=== PATIENT | female | born 1955 | race Caucasian/White ===

== ENCOUNTER → 2017-11-04 | Outpatient (CLI) | payer OTHER ==
--- NOTE | 2017-11-04 10:43 | RAD ---
Indication: Preop for left knee replacement. Huynh & Nephew protocol was performed. AP views of the left femur as well as the tibia and fibula were obtained. Alignment appears normal. There may be a very small osteochondral defect involving the talar dome medially. There is medial compartmental degenerative change of the left knee. Left hip is unremarkable. No fractures are seen. Impression: No acute feature detected.
--- NOTE | 2017-11-04 13:35 | RAD ---
Examination: MRI of the left knee without contrast using Huynh & Nephew protocol HISTORY: History of chronic left knee pain COMPARISON: None available TECHNIQUE: Axial T2 fat sat and sagittal images of the left knee were performed. FINDINGS: Prior ACL reconstruction changes are identified. The posterior cruciate ligament appears intact. Attenuated appearance of the body of the medial and lateral meniscus likely degeneration. There is increased signal identified in the posterior horn of the medial meniscus probably degeneration. Extensor mechanism is intact. Severe joint space loss identified in the medial, lateral and patellofemoral compartments. The medial, lateral retinaculum appear intact. Small knee joint effusion with small popliteal cyst identified. IMPRESSION: 1. Severe tricompartmental degenerative changes. 2. Small knee joint effusion with small popliteal cyst. 3. Attenuated appearance of the body of the medial and lateral meniscus with increased signal identified in the posterior horn of the medial meniscus probably due to degeneration. 4. Prior ACL reconstruction changes intact. Electronically signed by: Jayden Ospina MD (11/04/2017 1:31 PM) [id number]
== END | disposition home or self-care (01) ==
LOC: RAD 10:00
PROVIDERS: ATTEND Orthopaedic Surgery Sports Medicine
DX: M17.12 Unilateral primary osteoarthritis, left knee (principal); M71.22 Synovial cyst of popliteal space [Baker], left knee; M25.462 Effusion, left knee; Z96.652 Presence of left artificial knee joint
CPT/HCPCS: 73721; 77073

== ENCOUNTER → 2017-11-18 | Outpatient (CLI) | payer OTHER ==
[2017-11-18 09:19] LABS: BILIRUBIN,URINE NEGATIVE (NEG); CLARITY,URINE CLEAR; COLOR,URINE YELLOW; GLUCOSE,URINE 100 mg/dL (NEG); NITRITE,URINE NEGATIVE (NEG); PH,URINE 6.5; PROTEIN,URINE NEGATIVE (NEG-TRACE)
[2017-11-18 09:21] LABS: BASO % 0 % (0-3); EOS # 0.2 x10^3/uL (0.0-0.7); EOS % 3 % (0-3); HEMOGLOBIN 11.6 g/dL (12.0-15.5); LYMPH # 1.9 x10^3/uL (1.0-4.8); LYMPH % 36 % (24-48); MEAN CORPUSCULAR HEMOGLOBIN 32 pg (25-35); MEAN CORPUSCULAR HGB CONC 33 g/dL (31-37); MEAN CORPUSCULAR VOLUME 97 fL (79-100); MONO # 0.4 x10^3/uL (0.0-1.1); MONO % 8 % (0-9); NEUT # 2.7 x10^3uL (1.8-7.7); NEUT % 53 % (31-73); PLATELET COUNT 362 x10^3/uL (140-400); RED CELL DISTRIBUTION WIDTH 13.5 % (11.5-14.5); WHITE BLOOD COUNT 5.2 x10^3/uL (4.0-11.0)
[2017-11-18 09:26] LABS: ADD MAN DIFF? YES
[2017-11-18 09:27] LABS: ALBUMIN 3.4 g/dL (3.4-5.0); ANION GAP 10 (6-14); BLOOD UREA NITROGEN 14 mg/dL (7-20); CALCIUM 8.7 mg/dL (8.5-10.1); CARBON DIOXIDE 30 mmol/L (21-32); CHLORIDE 106 mmol/L (98-107); CREATININE 0.6 mg/dL (0.6-1.0); GFR 101.6; GLUCOSE 92 mg/dL (70-99); POTASSIUM 3.7 mmol/L (3.5-5.1); SODIUM 146 mmol/L (136-145)
[2017-11-18 09:42] LABS: SQUAMOUS EPITHELIAL CELL,UR FEW /LPF
[2017-11-18 09:43] LABS: BACTERIA,URINE FEW /HPF (0-FEW)
[2017-11-18 09:57] LABS: INR 1.1 (0.8-1.1); PARTIAL THROMBOPLASTIN TIME 26 SEC (24-38); PROTHROMBIN TIME PATIENT 13.2 SEC (11.7-14.0)
[2017-11-18 10:20] LABS: % BANDS 1 % (0-9); % BASOS 1 % (0-3); % EOS 2 % (0-5); % LYMPHS 29 % (24-48); % METAS 1 % (0-0); % MONOS 8 % (0-10); % SEGS 58 % (35-66)
[2017-11-18 10:21] LABS: PLT ESTIMATE ADEQUATE (ADEQUATE)
[2017-11-18 10:59] LABS: SEDIMENTATION RATE 18 (0-25)
[2017-11-18 17:11] LABS: HEMOGLOBIN A1C 5.9 % (4.8-5.6)
[2017-11-19 01:10] LABS: MRSA BY PCR Negative (Negative)
== END | disposition home or self-care (01) ==
LOC: SURGPAT 12:20
DX: Z01.818 Encounter for other preprocedural examination (principal); I10 Essential (primary) hypertension; M17.12 Unilateral primary osteoarthritis, left knee; E11.9 Type 2 diabetes mellitus without complications; E03.9 Hypothyroidism, unspecified; E78.5 Hyperlipidemia, unspecified; R79.89 Other specified abnormal findings of blood chemistry; Z96.652 Presence of left artificial knee joint
CPT/HCPCS: 36415; 71046; 80048; 81001; 82040; 83036; 85007; 85025; 85610; 85651; 85730; 87641

== ENCOUNTER 2017-12-08 05:45 | Inpatient (IN) | payer OTHER ==
[2017-12-08] MEDS ORDERED: TRANEXAMIC ACID 1,000 MG in IV NS 50ML -- 1ST BAG INJ (06:00)
[2017-12-08] MEDS ORDERED: CELECOXIB 200 MG CAPSULE. PO (06:00)
[2017-12-08 06:54] LABS: POC GLUCOSE 98 mg/dL (70-99)
[2017-12-08] MEDS: ACETAMINOPHEN 500 MG TABLET PO (06:58)
[2017-12-08] MEDS: IV RINGERS,LACTATED 1000ML 1,000 ML IV ×2 (06:58→10:28)
[2017-12-08] MEDS ORDERED: ONDANSETRON PF 4 MG/2 ML VIAL. IV ×2 (07:00→10:30)
[2017-12-08] MEDS ORDERED: MIDAZOLAM HCL/PF 2 MG/2 ML VIAL. (07:03)
[2017-12-08] MEDS ORDERED: PROPOFOL 20 ML IV (07:03)
[2017-12-08] MEDS ORDERED: FAMOTIDINE 20 MG/2 ML VIAL (07:03)
[2017-12-08] MEDS ORDERED: fentaNYL PF VIAL 100 MCG/2 ML VIAL ×2 (07:03→07:55)
[2017-12-08] MEDS ORDERED: ROCURONIUM 50 MG/5 ML VIAL. (07:03)
[2017-12-08] MEDS ORDERED: ONDANSETRON PF 4 MG/2 ML VIAL. (07:03)
[2017-12-08] MEDS ORDERED: DEXAMETHASONE SOD PHOS 20 MG/5 ML VIAL. (07:03)
[2017-12-08 07:22] LABS: INR 1.1 (0.8-1.1); PARTIAL THROMBOPLASTIN TIME 27 SEC (24-38); PROTHROMBIN TIME PATIENT 13.8 SEC (11.7-14.0)
[2017-12-08] MEDS ORDERED: KETOROLAC IV (08:00)
[2017-12-08] MEDS ORDERED: EPINEPHRINE IV (08:00)
[2017-12-08] MEDS ORDERED: [UNRECOGNIZED DRUG - OTHER] IV (08:00)
[2017-12-08] MEDS ORDERED: hydrALAZINE 20 MG/ML VIAL. (08:00)
[2017-12-08] MEDS ORDERED: ROPIVACAINE IV (08:00)
[2017-12-08] MEDS: TRANEXAMIC ACID 1,000 MG in IV NS 50ML -- 2ND BAG INJ (09:01)
[2017-12-08] MEDS ORDERED: NEOSTIGMINE METHYLSULFATE 5 MG/5 ML SYRINGE. (09:01)
[2017-12-08] MEDS ORDERED: GLYCOPYRROLATE 1 MG/5 ML VIAL. (09:02)
[2017-12-08] MEDS ORDERED: oxyCODONE/APAP 5/325 1 TAB TABLET PO (09:30)
[2017-12-08] MEDS ORDERED: fentaNYL PF VIAL 100 MCG/2 ML VIAL IV ×3 (09:30→10:30)
[2017-12-08] MEDS ORDERED: ACETAMINOPHEN 325 MG TABLET. PO (09:30)
[2017-12-08] MEDS ORDERED: HYDROcodone/APAP 7.5/325MG 1 TAB TABLET PO (09:30)
[2017-12-08] MEDS ORDERED: MORPHINE SULFATE 10 MG/ML VIAL. IV (09:30)
[2017-12-08] MEDS ORDERED: diphenhydrAMINE HCL 25 MG CAPSULE PO (09:30)
[2017-12-08] MEDS ORDERED: METOCLOPRAMIDE HCL 10 MG/2 ML VIAL. IV (09:30)
[2017-12-08] MEDS ORDERED: CALCIUM CARBONATE 500 MG TAB.CHEW PO (09:30)
[2017-12-08] MEDS ORDERED: traMADol 50 MG TABLET PO ×2 (09:30)
[2017-12-08] MEDS ORDERED: MORPHINE SULFATE 2 MG/ML DISP.SYRIN. IV ×2 (09:30→10:30)
[2017-12-08] MEDS ORDERED: 0.9 % SODIUM CHLORIDE 10 ML DISP.SYRIN. IV (09:30)
[2017-12-08] MEDS ORDERED: DEXTROSE 50% 25 GM / 50ML DISP.SYRIN. IV (09:30)
[2017-12-08] MEDS ORDERED: HYDROcodone/APAP 10/325 1 TAB TABLET PO (09:30)
[2017-12-08] MEDS ORDERED: PROCHLORPERAZINE 5 MG TABLET. PO (09:30)
[2017-12-08] MEDS ORDERED: PROCHLORPERAZINE 10 MG/2 ML VIAL. IV ×2 (09:30→10:30)
[2017-12-08] MEDS ORDERED: MORPHINE SULFATE 4 MG/ML DISP.SYRIN. IV (09:30)
[2017-12-08] MEDS ORDERED: oxyCODONE/APAP 7.5/325 1 TAB TABLET PO (09:30)
[2017-12-08] MEDS ORDERED: ZOLPIDEM 5 MG TABLET. PO (09:30)
[2017-12-08] MEDS ORDERED: SEVOFLURANE > 120 MINUTES. IH (09:32)
[2017-12-08] MEDS ORDERED: MORPHINE SULFATE 4 MG/ML DISP.SYRIN. (09:57)
[2017-12-08] MEDS: MORPHINE SULFATE 4 MG/ML DISP.SYRIN. IV (10:00)
[2017-12-08] MEDS: PROCHLORPERAZINE 10 MG/2 ML VIAL. IV ×2 (10:00→10:34)
[2017-12-08] MEDS ORDERED: HYDROmorphone 2 MG/ML VIAL IV (10:30)
[2017-12-08] MEDS ORDERED: LIDOCAINE 1% PF 2 ML VIAL. ID (10:30)
[2017-12-08] MEDS: fentaNYL PF VIAL 100 MCG/2 ML VIAL IV ×2 (10:34→10:41)
[2017-12-08] MEDS: traMADol 50 MG TABLET PO ×2 (12:27→16:16)
[2017-12-08] MEDS: NYSTATIN 100,000 UNIT/GM TOPICAL CREAM 15GM TUBE. TP (13:54)
[2017-12-08] MEDS: FERROUS SULFATE 325 MG TABLET. PO (16:16)
[2017-12-08] MEDS: WARFARIN 7.5 MG TABLET. PO (16:17)
[2017-12-08] MEDS ORDERED: NYSTATIN 100,000 UNIT/GM TOPICAL CREAM 15GM TUBE. TP (17:00)
[2017-12-08] MEDS: IV DEXTROSE 5 %-0.45 % NACL 1,000 ML IV (18:29)
[2017-12-08] MEDS: MORPHINE ER 15 MG TABLET.ER PO (20:26)
[2017-12-08] MEDS: MONTELUKAST SODIUM 10 MG TABLET. PO (20:26)
[2017-12-08] MEDS: AMITRIPTYLINE HCL 50 MG TABLET PO (20:26)
[2017-12-08] MEDS: CELECOXIB 200 MG CAPSULE. PO (20:26)
[2017-12-08] MEDS: GABAPENTIN 300 MG CAPSULE. PO (20:26)
[2017-12-08] MEDS: MECLIZINE HCL 12.5 MG TABLET. PO (20:26)
[2017-12-09] MEDS ORDERED: MAGNESIUM HYDROXIDE 2,400 MG/30 ML ORAL.SUSP. PO (06:00)
[2017-12-09] MEDS: CELECOXIB 200 MG CAPSULE. PO ×2 (08:11→21:00)
[2017-12-09] MEDS: VITAMIN B COMPLEX TABLET. PO (08:11)
[2017-12-09] MEDS: CHOLECALCIFEROL (VITAMIN D3) 1,000 UNIT TABLET PO (08:11)
[2017-12-09] MEDS: FENOFIBRATE,MICRONIZED 134 MG CAPSULE PO (08:11)
[2017-12-09] MEDS: FERROUS SULFATE 325 MG TABLET. PO ×2 (08:11→16:44)
[2017-12-09] MEDS: FOLIC ACID 1 MG TABLET. PO (08:12)
[2017-12-09] MEDS: MULTIVITAMIN with MINERAL TABLET. PO (08:13)
[2017-12-09] MEDS: NIACIN ER 500 MG TABLET.ER PO (08:13)
[2017-12-09] MEDS: DULoxetine HCL 30 MG CAPSULE.DR PO (08:13)
[2017-12-09] MEDS: CETIRIZINE HCL 10 MG TABLET. PO (08:13)
[2017-12-09] MEDS: MORPHINE ER 15 MG TABLET.ER PO ×2 (08:14→21:51)
[2017-12-09] MEDS: MAGNESIUM OXIDE 400 MG TABLET PO (08:15)
[2017-12-09] MEDS: LACTOBACILLUS RHAMNOSUS GG 1 CAPSULE. PO (08:15)
[2017-12-09] MEDS: SENNOSIDES/DOCUSATE 8.6/50MG TABLET. PO (08:15)
[2017-12-09] MEDS: ACYCLOVIR 200 MG CAPSULE. PO (08:17)
[2017-12-09] MEDS: METOPROLOL TART IMMED RELEASE 50 MG TABLET. PO ×2 (08:18→21:49)
[2017-12-09] MEDS: CLOTRIMAZOLE 1% TOPICAL CREAM 15GM TUBE. TP (08:18)
[2017-12-09] MEDS: LUBIPROSTONE 8 MCG CAPSULE PO (08:26)
[2017-12-09] MEDS ORDERED: ATOMOXETINE HCL 60 MG PO (09:00)
[2017-12-09 09:42] LABS: HEMATOCRIT 29.5 % (36.0-47.0); HEMOGLOBIN 9.7 g/dL (12.0-15.5); MEAN CORPUSCULAR HEMOGLOBIN 32 pg (25-35); MEAN CORPUSCULAR HGB CONC 33 g/dL (31-37); MEAN CORPUSCULAR VOLUME 97 fL (79-100); PLATELET COUNT 298 x10^3/uL (140-400); RED BLOOD COUNT 3.05 x10^6/uL (3.50-5.40); RED CELL DISTRIBUTION WIDTH 13.9 % (11.5-14.5); WHITE BLOOD COUNT 5.5 x10^3/uL (4.0-11.0)
[2017-12-09] MEDS: traMADol 50 MG TABLET PO ×3 (10:01→16:53)
[2017-12-09 10:06] LABS: INR 1.6 (0.8-1.1); PROTHROMBIN TIME PATIENT 18.1 SEC (11.7-14.0)
[2017-12-09] MEDS ORDERED: BISACODYL 10 MG SUPP.RECT. PR (16:00)
[2017-12-09] MEDS: WARFARIN 2 MG TABLET. PO (16:44)
[2017-12-09] MEDS: diphenhydrAMINE 50 MG/ML VIAL IV (20:38)
[2017-12-09] MEDS ORDERED: AMITRIPTYLINE HCL 25 MG TABLET. PO (21:00)
[2017-12-09] MEDS: GABAPENTIN 300 MG CAPSULE. PO (21:50)
[2017-12-09] MEDS: MONTELUKAST SODIUM 10 MG TABLET. PO (21:50)
[2017-12-09] MEDS: MECLIZINE HCL 12.5 MG TABLET. PO (21:50)
[2017-12-09] MEDS: AMITRIPTYLINE HCL 50 MG TABLET PO (21:50)
[2017-12-10 05:44] LABS: HEMATOCRIT 28.4 % (36.0-47.0); HEMOGLOBIN 9.4 g/dL (12.0-15.5); MEAN CORPUSCULAR HGB CONC 33 g/dL (31-37)
[2017-12-10] MEDS ORDERED: LINACLOTIDE 145 MCG CAPSULE. PO ×2 (07:00→09:00)
[2017-12-10 07:45] LABS: INR 1.6 (0.8-1.1); PROTHROMBIN TIME PATIENT 18.2 SEC (11.7-14.0)
[2017-12-10] MEDS: FERROUS SULFATE 325 MG TABLET. PO ×2 (08:04→16:48)
[2017-12-10] MEDS: SENNOSIDES/DOCUSATE 8.6/50MG TABLET. PO (08:04)
[2017-12-10] MEDS: LUBIPROSTONE 8 MCG CAPSULE PO (08:04)
[2017-12-10] MEDS: FOLIC ACID 1 MG TABLET. PO (08:05)
[2017-12-10] MEDS: MULTIVITAMIN with MINERAL TABLET. PO (08:05)
[2017-12-10] MEDS: MORPHINE ER 15 MG TABLET.ER PO ×2 (08:05→20:44)
[2017-12-10] MEDS: NIACIN ER 500 MG TABLET.ER PO (08:05)
[2017-12-10] MEDS: LACTOBACILLUS RHAMNOSUS GG 1 CAPSULE. PO (08:05)
[2017-12-10] MEDS: CHOLECALCIFEROL (VITAMIN D3) 1,000 UNIT TABLET PO (08:06)
[2017-12-10] MEDS: ACYCLOVIR 200 MG CAPSULE. PO (08:06)
[2017-12-10] MEDS: MAGNESIUM OXIDE 400 MG TABLET PO (08:06)
[2017-12-10] MEDS: VITAMIN B COMPLEX TABLET. PO (08:06)
[2017-12-10] MEDS: DULoxetine HCL 30 MG CAPSULE.DR PO (08:06)
[2017-12-10] MEDS: FENOFIBRATE,MICRONIZED 134 MG CAPSULE PO (08:06)
[2017-12-10] MEDS: CETIRIZINE HCL 10 MG TABLET. PO (08:06)
[2017-12-10] MEDS: METOPROLOL TART IMMED RELEASE 50 MG TABLET. PO ×2 (08:07→20:45)
[2017-12-10] MEDS: CELECOXIB 200 MG CAPSULE. PO ×2 (08:07→19:24)
[2017-12-10] MEDS: CLOTRIMAZOLE 1% TOPICAL CREAM 15GM TUBE. TP (08:08)
[2017-12-10] MEDS: traMADol 50 MG TABLET PO (12:40)
[2017-12-10] MEDS: WARFARIN 3 MG TABLET. PO (16:48)
[2017-12-10] MEDS: AMITRIPTYLINE HCL 50 MG TABLET PO (20:44)
[2017-12-10] MEDS: MONTELUKAST SODIUM 10 MG TABLET. PO (20:44)
[2017-12-10] MEDS: GABAPENTIN 300 MG CAPSULE. PO (20:44)
[2017-12-10] MEDS: MECLIZINE HCL 12.5 MG TABLET. PO (20:44)
[2017-12-11 05:33] LABS: HEMATOCRIT 28.6 % (36.0-47.0); HEMOGLOBIN 9.5 g/dL (12.0-15.5); MEAN CORPUSCULAR HGB CONC 33 g/dL (31-37)
[2017-12-11 05:41] LABS: INR 1.6 (0.8-1.1); PROTHROMBIN TIME PATIENT 18.4 SEC (11.7-14.0)
[2017-12-11] MEDS: LUBIPROSTONE 8 MCG CAPSULE PO (08:10)
[2017-12-11] MEDS: FERROUS SULFATE 325 MG TABLET. PO (08:10)
[2017-12-11] MEDS: LACTOBACILLUS RHAMNOSUS GG 1 CAPSULE. PO (08:11)
[2017-12-11] MEDS: NIACIN ER 500 MG TABLET.ER PO (08:11)
[2017-12-11] MEDS: DULoxetine HCL 30 MG CAPSULE.DR PO (08:11)
[2017-12-11] MEDS: CHOLECALCIFEROL (VITAMIN D3) 1,000 UNIT TABLET PO (08:12)
[2017-12-11] MEDS: VITAMIN B COMPLEX TABLET. PO (08:12)
[2017-12-11] MEDS: FENOFIBRATE,MICRONIZED 134 MG CAPSULE PO (08:12)
[2017-12-11] MEDS: MULTIVITAMIN with MINERAL TABLET. PO (08:12)
[2017-12-11] MEDS: SENNOSIDES/DOCUSATE 8.6/50MG TABLET. PO (08:12)
[2017-12-11] MEDS: MAGNESIUM OXIDE 400 MG TABLET PO (08:12)
[2017-12-11] MEDS: FOLIC ACID 1 MG TABLET. PO (08:12)
[2017-12-11] MEDS: ACYCLOVIR 200 MG CAPSULE. PO (08:12)
[2017-12-11] MEDS: CETIRIZINE HCL 10 MG TABLET. PO (08:13)
[2017-12-11] MEDS: METOPROLOL TART IMMED RELEASE 50 MG TABLET. PO (08:13)
[2017-12-11] MEDS: MORPHINE ER 15 MG TABLET.ER PO (08:13)
[2017-12-11] MEDS: CLOTRIMAZOLE 1% TOPICAL CREAM 15GM TUBE. TP (08:16)
[2017-12-11] MEDS: traMADol 50 MG TABLET PO (11:59)
[2017-12-11] MEDS: WARFARIN 3 MG TABLET. PO (14:34)
== END 2017-12-11 15:21 | disposition home or self-care (01) | DRG 470 ==
LOC: OPSVCIP 05:45 → 4 SOUTHEST 11:10
PROC: 0SRD069 Replacement of Left Knee Joint with Oxidized Zirconium on Polyethylene Synthetic Substitute, Cemented, Open Approach (ICD-10-PCS; principal; 2017-12-08 07:21)
DX: M17.12 Unilateral primary osteoarthritis, left knee (principal); E78.5 Hyperlipidemia, unspecified; M79.7 Fibromyalgia; G89.29 Other chronic pain; Z80.3 Family history of malignant neoplasm of breast; Z83.3 Family history of diabetes mellitus; Z90.710 Acquired absence of both cervix and uterus; Z88.6 Allergy status to analgesic agent; Z88.1 Allergy status to other antibiotic agents; Z88.2 Allergy status to sulfonamides; Z88.8 Allergy status to other drugs, medicaments and biological substances; Z91.048 Other nonmedicinal substance allergy status; Z98.51 Tubal ligation status; Z90.49 Acquired absence of other specified parts of digestive tract
CPT/HCPCS: 36415; 73560; 82962; 85014; 85018; 85027; 85610; 85730; 86850; 86900; 86901; 88305; 88311; 97110-GO; 97116-GP; 97150-GP; 97161-GP; 97166-GO; 97530-GP; 97535-GO; C1713; J0360; J0690; J0780; J1100; J1200; J2250; J2270; J2405; J2704; J2710; J3010; J3490; J7030; J7120; J8597; S0028

== ENCOUNTER → 2018-04-24 | Outpatient (CLI) | payer OTHER | END | disposition home or self-care (01) | LOC: KCIC MRI 13:12 | DX: M51.36 Other intervertebral disc degeneration, lumbar region (principal); M48.061 Spinal stenosis, lumbar region without neurogenic claudication | CPT/HCPCS: 72148 ==

== ENCOUNTER 2018-06-10 08:10 | Outpatient (CLI) | payer OTHER ==
[2018-06-10] MEDS ORDERED: CONTRAST GIVEN. MC (08:30)
[2018-06-10] MEDS: DIPHENHYDRAMINE SQ (09:27)
[2018-06-10] MEDS: IOHEXOL 180 MG/ML 10 ML VIAL. IT (09:27)
[2018-06-10] MEDS: TOTAL VOLUME SQ (09:27)
== END 2018-06-10 10:30 | disposition home or self-care (01) ==
LOC: RAD 08:10
DX: M48.061 Spinal stenosis, lumbar region without neurogenic claudication (principal); I10 Essential (primary) hypertension; E11.9 Type 2 diabetes mellitus without complications; E03.9 Hypothyroidism, unspecified; Z80.3 Family history of malignant neoplasm of breast; Z83.3 Family history of diabetes mellitus; Z90.49 Acquired absence of other specified parts of digestive tract; Z90.710 Acquired absence of both cervix and uterus
CPT/HCPCS: 72132; 72265; J1200; Q9965

== ENCOUNTER → 2018-11-05 | Outpatient (CLI) | payer OTHER ==
[2018-06-10 10:19] VITALS: BP 132/69
[~2018-11-05] MED LIST: ACET500T68 PO; ACYC400T PO; AMIT100T PO; ARIP10TA9 PO; ASCO10002 PO; ATOM60CA PO; BIOT1CAP3 PO; BYSTOLIC10 MG PO; CA C1TAB66 PO; CELE200C PO; CETI10TA22 PO; CHOL10003 PO; CLOT12CR2 TP; DIPH25CA58 PO; DOCU50CA9 PO; DULO30CA2 PO; EPIPEN0.3 MG/0.3 IJ; FENO145T30 PO; FLUT16SP NS; FOLI1TAB16 PO; GABA300C18 PO; GLUC100018 PO; ISOM1CAP9 PO; LACT1CAP29 PO; LINZESS145 MCG PO; MAGN500T3 PO; MONT10TA9 PO; MULT-47 PO; MV-M1TAB25 PO; NIAC500T PO; NYST15CR TP; OMEG1CAP66 PO; PANT20TA2 PO; TESTOSTERONE TOP; TRAM50TA PO; UBID50TA PO; VITA1TAB19 PO; ZINC PO; [UNRECOGNIZED DRUG - CODE] PO; [UNRECOGNIZED DRUG - CODE] PO; [UNRECOGNIZED DRUG - OTHER] PO
--- NOTE | 2018-11-05 21:02 | PAIN ---
DATE OF SERVICE: 11/05/2018 INITIAL CONSULTATION FOR PAIN CLINIC CHIEF COMPLAINT: Low back and bilateral lower extremity pain. HISTORY OF PRESENT ILLNESS: This is a 63-year-old female who presents with history of pain for many years starting in 1996, multiple very heavy duty jobs as well as being on her feet, carrying large weighted objects over the years, also being a nurse. The patient reports that over time, her back has become much worse. She has had several surgeries including instrumentation and fusions from essentially L2 level to S1. The patient reports each surgery helped initially, but the pain has now returned with fairly significant extent in the low back and bilateral lower extremities, mostly in the posterior gluteus, posterior thighs and calves, slightly worse on the right than the left but present bilaterally. It is worse with walking, standing, change in positions, getting up from a sitting position to a standing position, awakens her from sleep at night at least 3 times at night. The patient reports it still has some effect on her bowel or bladder control but no incontinence. She has some increased frequency when the pain is at its worst. The patient reports it affects her ability to walk significantly but does not use any assistive devices. The patient reports the pain is constant, sharp, shooting down both the legs as described, changes during the day, worse with activity, numbness and radiation to the legs and feet, cramping, aching and worse at night. The patient reports she has had epidural injections, trigger point injections, physical therapy, counseling as well as exercise, which is ongoing, all the physical therapy and counseling within the last year and is scheduled to try physical therapy once again this year, all of which have been only temporary and decreasing the pain. The patient reports taking anti-inflammatories, Motrin, Advil, Aleve, all with only a mild decrease in pain without significant reduction. The patient reports no loss of motor function but significant fatigability with both the lower extremities with ambulating and standing. PAST MEDICAL HISTORY: Significant for borderline diabetes, hypertension, sleep apnea, irritable bowel syndrome and arthritis. PAST SURGICAL HISTORY: Previous surgeries include a cervical laminectomy, lumbar laminectomy, lumbar fusion, lumbar instrumentation, intradiscal fusion as well and tonsillectomy. CURRENT MEDICATIONS: Include Protonix, Abilify, Celebrex, fluticasone, Lotrimin, morphine sulfate, Cymbalta, Linzess, montelukast, gabapentin, fenofibrate, amitriptyline, meclizine, docusate, acetaminophen, cetirizine, diphenhydramine, estrogen, tramadol, Bystolic, testosterone, biotin, multivitamins, folic acid, magnesium and probiotics. ALLERGIES: THE PATIENT IS ALLERGIC TO LATEX, ADHESIVE TAPES, CODEINE, DEMEROL. Food allergies include HAZELNUT and PINEAPPLE. FAMILY HISTORY: Significant for cancers cervical, breast, colon and pancreatic also hypertension and diabetes. SOCIAL HISTORY: The patient does not drink alcohol; does not smoke and does not use any illegal, illicit or recreational drugs. She is , lives with her spouse, has no children, living at home but is currently retired secondary to her pain condition. REVIEW OF SYSTEMS: The patient's review of systems is positive for those items mentioned in history of present illness. All systems reviewed and otherwise negative. It is complete, full, well documented on the patient's chart. PHYSICAL EXAMINATION: VITAL SIGNS: The patient's blood pressure is 179/87, pulse is 94, respirations are 18 and temperature is 98.1 degrees Fahrenheit. Height is 5 feet 3 inches and weight is 172 pounds. GENERAL: The patient is awake, alert, oriented, appropriate and very pleasant demeanor. HEENT: Head shows normocephalic and atraumatic. Extraocular movements are intact and symmetrical. Oral cavity: Mucous membranes moist and pink. Dentition is intact. NECK: Shows anterior throat supple without palpable lymphadenopathy noted. Swallow reflex symmetrical. CHEST: Shows normal with inspection. Breath sounds clear to auscultation bilaterally. HEART: Shows S1 and S2 clear. No murmurs auscultated. ABDOMEN: Obese, soft, nontender and nondistended. No palpable organomegaly is noted. No rebound or guarding demonstrated. BACK: Shows spine grossly in the midline. Normal appearing thoracic kyphosis and some slight flattening of the lumbar lordotic curvature. Well healed surgical scar is noted in the lumbar distribution, which is extensive. Lumbar paraspinous muscle shows symmetrical on inspection and on palpation shows some moderate tenderness diffusely bilaterally, but without significant radiation. The patient does show good rotational motion of the lumbar spine, both laterally greater than 10 degrees, extension is limited secondary to previous surgery but not secondary to pain to only about 10 degrees at its most, forward flexion is at 45 degrees without significant pain reported with forward flexion. EXTREMITIES: The patient's lower extremities show deep tendon reflexes at 1+ in the patellar and tendo-calcaneus tendons are equal. Motor exam is approximately 4 on a scale of 5, but equal and symmetrical with dorsiflexion, extension, quadriceps and hamstring flexion bilaterally. Peripheral pulses are 1+ posterior tibia. No peripheral edema is noted. No clubbing or cyanosis. Lower extremities are warm and dry to touch, equal in color and appearance. Straight leg raise noted to be negative for reproduction of radicular symptoms bilaterally. Gaenslen's and Franky's maneuvers are negative bilaterally as well. The patient is able to stand, is difficult to try to stand on her toes as she loses balance fairly quickly, is walking with a slight antalgic gait, appears not to favor the right or left lower extremity significantly but is not using any assistive devices to ambulate as well. The patient's skin is warm and dry, good turgor. No edema. No sores, rashes or bruising. IMPRESSION: 1. This is a 63-year-old female with a long history of low back and bilateral lower extremity pain in a radicular fashion following an L5-S1 dermatomal distribution. 2. Myelogram, lumbar spine showing extensive postsurgical and degenerative changes and minimal central stenosis, L2-L3 with hypertrophic change at the L5-S1 with facet joint and partial fusion and posterior element, central spinal canal patent with mild bilateral foraminal narrowing due to spurring. 3. Hypertension. 4. Borderline diabetes. 5. Arthritis. 6. Irritable bowel syndrome. PLAN: Options were discussed with the patient including conservative medical management, physical therapy, interventional techniques. She would like to pursue interventional techniques as she is doing physical therapy currently and has another round starting soon. She continues to do exercises on her own. We discussed a caudal approach epidural steroid injection using description as well as anatomical models to describe the procedure. The patient will wait for preauthorization with her insurance provider and we will have plan on having her return for caudal epidural steroid injection at that time. In the meantime, we will try Medrol Dosepak. The patient was given instructions as well as side effects to be aware of with medication to see if this may decrease her pain while waiting for the insurance to respond. The patient will follow up in approximately 1 week and plan on caudal approach epidural steroid injection at that time. CIERRA LI MD DR: DOMENIC/barbara JOB#: [id number] / [id number] SILVERIO Lema
== END | disposition home or self-care (01) ==
LOC: PNCL 13:13
PROVIDERS: ATTEND Anesthesiology
DX: M54.5 Low back pain (principal); M79.662 Pain in left lower leg; M79.661 Pain in right lower leg; I10 Essential (primary) hypertension; K58.9 Irritable bowel syndrome, unspecified; M19.90 Unspecified osteoarthritis, unspecified site; Z98.890 Other specified postprocedural states; Z80.8 Family history of malignant neoplasm of other organs or systems; Z82.49 Family history of ischemic heart disease and other diseases of the circulatory system; Z83.3 Family history of diabetes mellitus; Z91.040 Latex allergy status; Z88.5 Allergy status to narcotic agent; Z88.8 Allergy status to other drugs, medicaments and biological substances; Z91.018 Allergy to other foods; Z79.899 Other long term (current) drug therapy
CPT/HCPCS: G0463

== ENCOUNTER → 2018-11-24 | Outpatient (CLI) | payer OTHER ==
[2018-06-10 10:19] VITALS: BP 132/69
[~2018-11-24] MED LIST changes: +IOHEXOL 180 MG/ML 10 ML VIAL. ONE; +methylPREDNISolone ACETATE 40 MG/ML VIAL. ONE; +methylPREDNISolone ACETATE 80 MG/ML VIAL. ONE
--- NOTE | 2018-11-24 12:10 | PAIN ---
DATE OF SERVICE: 11/24/2018 PROGRESS NOTE FOR PAIN CLINIC DIAGNOSIS: Lumbar radiculopathy with lumbar degenerative disk disease, lumbar spinal stenosis and post-lumbar laminectomy syndrome. HISTORY OF PRESENT ILLNESS: The patient is a 63-year-old female who returns for followup status post initial evaluation and preauthorization for caudal approach epidural steroid injection. The patient has obtained that and would like to proceed today. She reports pain is still in the low back and into the bilateral lower extremities, right essentially equal to left. The patient reports no new motor or sensory deficits, no new bowel or bladder incontinence. Describes the pain as cramping, stabbing, aching, tight, becoming more constant and unbearable, on and off in intensity in the low back and in the legs bilaterally. The patient reports it is a 9 on a scale of 10 at its worst, 6 on average, 6 at its least and is a 6 today. The patient reports no new motor or sensory deficits, no new bowel or bladder incontinence or other complaints. It is still awakening the patient from sleep and worse with standing and walking, better with sitting. PHYSICAL EXAMINATION: VITAL SIGNS: Today, the patient's blood pressure is 145/89, pulse 76, respirations 18, temperature is 98.5 degrees Fahrenheit, height is 5 feet 3 inches, weight is 177 pounds. GENERAL: The patient is awake, alert, oriented, appropriate, very pleasant demeanor. HEENT: Head shows normocephalic, atraumatic. The patient wears eyeglasses. Extraocular movements are intact and symmetrical. Oral cavity: Mucous membranes are moist and pink. Dentition is intact. NECK: Shows anterior throat supple without palpable lymphadenopathy noted. Swallow reflex is symmetrical. CHEST: Shows normal on inspection. Breath sounds are clear to auscultation bilaterally. HEART: Shows S1, S2 clear. No murmurs auscultated. ABDOMEN: Soft, nontender, nondistended. No palpable organomegaly is noted. No rebound or guarding demonstrated. BACK: Shows spine grossly in the midline. Normal appearing thoracic kyphosis and some flattening of lumbar lordotic curvature with well-healed extensive surgical scarring. Lumbar paraspinous muscle shows symmetrical on inspection, with palpation shows some moderate tenderness throughout the upper, middle and lower distribution of the paraspinous muscles diffusely without radiation. EXTREMITIES: The patient's lower extremities show deep tendon reflexes 1+ in the patellar and tendo calcaneus tendons, are equal. Motor exam is 4 on a scale of 5, but equal and symmetrical with dorsiflexion, extension, quadriceps and hamstring flexion bilaterally. Options were discussed with the patient. The patient's old chart was reviewed as her current medication regimen updated. Current review of systems updated today as well. We will proceed with a caudal approach epidural steroid injection today with fluoroscopic guidance. Risks were again discussed including, but not limited to bleeding, infection, possibility of epidural hematoma, subsequent neurological compromise, dural puncture, headaches, spinal cord and/or nerve damage, side effects of steroid medication and poor results regarding pain control. The patient understands and wished to proceed. The patient will return to the clinic in approximately 2 weeks for followup, was counseled on return appointment, activity level and side effects to be aware of. DIAGNOSIS: Lumbar radiculopathy with lumbar degenerative disk disease and lumbar spinal stenosis. PROCEDURE: Caudal approach epidural steroid injection using C-arm fluoroscopic guidance under sterile prep and drape using local anesthetic. MEDICATION INJECTED: A total of 120 mg Depo-Medrol plus 10 mL of preservative-free normal saline and 2 mL of Isovue for contrast. CONDITION AT DISCHARGE: Stable. The patient tolerated the procedure well, had no complications. CIERRA LI MD DR: DOMENIC/barbara JOB#: [id number] / [id number]
== END | disposition home or self-care (01) ==
LOC: PNCL 10:16
PROVIDERS: ATTEND Anesthesiology
DX: M51.16 Intervertebral disc disorders with radiculopathy, lumbar region (principal); M48.061 Spinal stenosis, lumbar region without neurogenic claudication; M96.1 Postlaminectomy syndrome, not elsewhere classified; Z88.2 Allergy status to sulfonamides; Z88.6 Allergy status to analgesic agent; Z88.5 Allergy status to narcotic agent; Z91.040 Latex allergy status; Z88.8 Allergy status to other drugs, medicaments and biological substances
CPT/HCPCS: 62323; J1030; J1040; Q9965

== ENCOUNTER → 2019-01-14 | Outpatient (CLI) | payer OTHER ==
[2018-06-10 10:19] VITALS: BP 132/69
[~2019-01-14] MED LIST changes: -IOHEXOL 180 MG/ML 10 ML VIAL. ONE; +MORP15TA3 PO; -methylPREDNISolone ACETATE 40 MG/ML VIAL. ONE; -methylPREDNISolone ACETATE 80 MG/ML VIAL. ONE
--- NOTE | 2019-01-15 02:36 | PAIN ---
DATE OF SERVICE: 01/14/2019 DIAGNOSES: Lumbar radiculopathy with lumbar degenerative disk disease, lumbar spinal stenosis and post-lumbar laminectomy syndrome. HISTORY OF PRESENT ILLNESS: The patient is a 63-year-old female who returns for followup status post caudal epidural steroid injection x 1. The patient reports about 75% improvement after the first injection for the first 2 weeks, now the pain is returning. She had to reschedule due to some severe weather we had and reports the pain is still overall about 50% improvement even after almost 4 weeks now. The patient reports that the pain is in the low back and the legs are doing much better. The sharp shooting pain in the legs is almost gone. The pain is across the low back and into the posterior gluteus, posterior thighs occasionally, mostly just in the back itself. The patient reports it is a 9 on a scale of 10 at its worst, 7 on average, 4 at its least, still radiating into the leg, but much less than it was. The patient reports it is sharp, tight, cramping, burning, radiating, severe at times, unbearable with walking, standing, changing positions, better with sitting or lying down, awakens her from sleep occasionally, but not most nights. The patient reports no new motor or sensory deficits, no new bowel or bladder incontinence or other complaints. PHYSICAL EXAMINATION: VITAL SIGNS: The patient's blood pressure 140/91, pulse 103, respirations 16, temperature 97.8 degrees Fahrenheit, height is 5 feet 3 inches, weight is 187 pounds. GENERAL: The patient is awake, alert, oriented, appropriate, very pleasant demeanor. HEENT: Head shows normocephalic, atraumatic. Extraocular movements are intact and symmetrical. Oral cavity: Mucous membranes moist and pink. Dentition is intact. NECK: Shows anterior throat supple without palpable lymphadenopathy noted. Swallow reflex symmetrical. CHEST: Shows normal with inspection. Breath sounds are clear to auscultation bilaterally. HEART: Shows S1, S2 clear. No murmurs auscultated. ABDOMEN: Soft, nontender, nondistended. No palpable organomegaly is noted. No rebound or guarding demonstrated. BACK: Shows spine grossly in the midline. Normal appearing thoracic kyphosis and lumbar lordotic curvature. Lumbar paraspinous muscle shows symmetrical on inspection. On palpation shows some moderate tenderness, but only diffusely in the low lumbar distribution without radiation. EXTREMITIES: The patient's lower extremities show deep tendon reflexes 1+ in the patellar and tendo calcaneus tendons. Motor exam is strong with 4/5 and equal with dorsiflexion, extension, quadriceps and hamstring flexion and symmetrical as well. Peripheral pulses are 1+. No peripheral edema is noted bilaterally. Options were discussed with the patient. The patient's old chart was reviewed as her current medication regimen updated. Current review of systems updated today as well. We will preauthorize the patient for a second caudal approach epidural steroid injection as she did very well with the first injection about 75% improvement in the first 2 weeks. Now overall about 50% improved, still pain in the low back and bilateral lumbar L5-S1 dermatomal distribution of the lower extremities bilaterally. We will have the patient return once preauthorized for a caudal approach epidural steroid injection as she did very well with the first. She will continue some strengthening and stretching exercises. She is also starting some water therapy, which may be helpful as well with her rec center locally. She will continue to do stationary bicycle as well as she has been doing this recently also, which she feels is helpful. The patient will follow up as scheduled. We will plan on second caudal epidural steroid injection at that time. CIERRA LI MD DR: DOMENIC/barbara JOB#: [id number] / [id number]
== END | disposition home or self-care (01) ==
LOC: PNCL 10:21
PROVIDERS: ATTEND Anesthesiology
DX: M51.16 Intervertebral disc disorders with radiculopathy, lumbar region (principal); M48.061 Spinal stenosis, lumbar region without neurogenic claudication; M96.1 Postlaminectomy syndrome, not elsewhere classified
CPT/HCPCS: G0463

== ENCOUNTER → 2019-01-28 | Outpatient (CLI) | payer OTHER ==
[2018-06-10 10:19] VITALS: BP 132/69
[~2019-01-28] MED LIST changes: +IOHEXOL 180 MG/ML 10 ML VIAL. ONE; +methylPREDNISolone ACETATE 40 MG/ML VIAL. ONE; +methylPREDNISolone ACETATE 80 MG/ML VIAL. ONE
--- NOTE | 2019-01-29 02:20 | PAIN ---
DATE OF SERVICE: 01/28/2019 DIAGNOSIS: Lumbar radiculopathy with lumbar degenerative disk disease, lumbar spinal stenosis and post-lumbar laminectomy syndrome. HISTORY OF PRESENT ILLNESS: The patient is a 63-year-old female who returns for followup status post evaluation and status post caudal epidural steroid injection x 1 with good improvement, about 75% improvement with first injection. Pain is returning now in the low back, bilateral lower extremities, but no new motor or sensory deficits, no new bowel or bladder incontinence. The patient reports the pain is dull aching, sharp, shooting, tight in both lower extremities, cramping in the back as well in the legs, is becoming more constant, more unbearable with walking, standing, better with sitting or lying down, but it awakens her from sleep about every 5-6 hours. The patient reports she was initially walking with greater ease and comfort, doing household activities much easier, traveling much easier, but now the pain is returning to a fairly significant extent in the back and lower extremities. The patient reports no other changes. PHYSICAL EXAMINATION: VITAL SIGNS: The patient's blood pressure is 142/93, pulse 103, respirations 16, temperature 98.1 degrees Fahrenheit. Height is 5 feet 3 inches, weighs 183 pounds. GENERAL: The patient is awake, alert, oriented, appropriate, very pleasant demeanor. HEENT: Head is normocephalic, atraumatic. Extraocular movements are intact and symmetrical. Oral cavity: Mucous membranes moist and pink. Dentition is intact. NECK: Shows anterior throat supple without palpable lymphadenopathy noted. Swallow reflex symmetrical. CHEST: Shows normal on inspection. Breath sounds clear to auscultation bilaterally. HEART: Shows S1, S2 clear. No murmurs auscultated. ABDOMEN: Soft, nontender, nondistended. No palpable organomegaly is noted. No rebound or guarding demonstrated. BACK: Shows spine grossly in the midline. Normal-appearing thoracic kyphosis and lumbar lordotic curvature. Lumbar paraspinous muscle shows symmetrical on inspection; on palpation shows some moderate tenderness diffusely and again well-healed surgical scars appreciated. The patient has full rotational motion of lumbar spine, both laterally as well as extension and flexion without significant tenderness or disability. EXTREMITIES: The patient's lower extremities show deep tendon reflexes at 1+ in the patellar and tendo-calcaneus tendons. Motor exam is approximately 4 on a scale of 5, but equal and symmetrical with dorsiflexion, extension, quadriceps and hamstring flexion and symmetrical bilaterally. Peripheral pulses are 1+ posterior tibial. No peripheral edema is noted. Options were discussed with the patient. The patient's old chart was reviewed as was his current medication regimen updated. Current review of systems updated today as well. We will proceed with a second in the series of caudal approach epidural steroid injection today with fluoroscopic guidance. Risks were again discussed including, but not limited to bleeding, infection, possibility of epidural hematoma and subsequent neurological compromise, dural puncture, headaches, spinal cord and/or nerve damage, side effects of steroid medication and poor results regarding pain control. The patient understands and wished to proceed. The patient to return to clinic in approximately 2 weeks for followup, was counseled as to return appointment, activity level and side effects to be aware of. DIAGNOSIS: Lumbar radiculopathy with lumbar degenerative disk disease, lumbar spinal stenosis and post-lumbar laminectomy syndrome. PROCEDURE: Caudal approach epidural steroid injection today under fluoroscopic guidance using C-arm with local anesthetic. MEDICATION INJECTED: A total of 120 mg Depo-Medrol plus 5 mL of preservative-free normal saline and 2 mL of Isovue for contrast. CONDITION AT DISCHARGE: Stable. The patient tolerated the procedure well, had no complications. CIERRA LI MD DR: DOMENIC/barbara JOB#: [id number] / [id number]
== END | disposition home or self-care (01) ==
LOC: PNCL 09:56
PROVIDERS: ATTEND Anesthesiology
DX: M51.16 Intervertebral disc disorders with radiculopathy, lumbar region (principal); M48.061 Spinal stenosis, lumbar region without neurogenic claudication; M96.1 Postlaminectomy syndrome, not elsewhere classified; Z88.2 Allergy status to sulfonamides; Z88.6 Allergy status to analgesic agent; Z91.040 Latex allergy status; Z88.8 Allergy status to other drugs, medicaments and biological substances
CPT/HCPCS: 62323; J1030; J1040; Q9965

== ENCOUNTER → 2019-02-11 | Outpatient (CLI) | payer OTHER ==
[2018-06-10 10:19] VITALS: BP 132/69
[~2019-02-11] MED LIST changes: -IOHEXOL 180 MG/ML 10 ML VIAL. ONE; -methylPREDNISolone ACETATE 40 MG/ML VIAL. ONE; -methylPREDNISolone ACETATE 80 MG/ML VIAL. ONE
--- NOTE | 2019-02-12 02:24 | PAIN ---
DATE OF SERVICE: 02/11/2019 DIAGNOSES: Lumbar radiculopathy with lumbar degenerative disk disease, lumbar spinal stenosis and post-lumbar laminectomy syndrome. HISTORY OF PRESENT ILLNESS: The patient is a 63-year-old female who returns for followup status post epidural steroid injection caudal approach x 2 on 01/28/2019. The patient did very well with about a 70% improvement after the last injection. The patient reports the pain is out of her legs now, for the most part was in her low back specifically and some worse in the right leg greater than the left with some posterior gluteus and posterior thigh with radiation of pain, but only very minimally. The patient reports she has increased her activity with greater ease and comfort, walking greater distances, doing activities at home as well as traveling with much greater ease and comfort. The patient reports she is sleeping better at night, but does awaken her occasionally over just the last few days. Prior to that she was doing very well. The patient reports being a 9 on a scale of 10 at its worst, 7 on average, 6 at its least and is a 6 today. The patient reports it is aching, tight across the low back, becoming more constant, more severe, cramping at times and unbearable at times when she is on her feet over the last 2 days only. The patient reports no new motor or sensory deficits, no new bowel or bladder incontinence or other complaints. PHYSICAL EXAMINATION: VITAL SIGNS: Today, blood pressure 155/96, pulse 88, respirations are 18, temperature 98.2 degrees Fahrenheit, height is 5 feet 3 inches, weight is 181 pounds. GENERAL: The patient is awake, alert, oriented, appropriate, very pleasant demeanor. HEENT: Head shows normocephalic, atraumatic. Extraocular movements are intact and symmetrical. Oral cavity: Mucous membranes moist and pink. Dentition is intact. NECK: Shows anterior throat supple without palpable lymphadenopathy noted. Swallow reflex symmetrical. CHEST: Shows normal with inspection. Breath sounds clear to auscultation bilaterally. HEART: Shows S1, S2 clear. No murmurs auscultated. ABDOMEN: Soft, nontender, nondistended. No palpable organomegaly is noted. No rebound or guarding demonstrated. BACK: Shows spine grossly in the midline. Normal appearing thoracic kyphosis and minor flattening of lumbar lordotic curvature with well-healed surgical scar noted. Lumbar paraspinous muscle shows symmetrical on inspection, with palpation shows some mild tenderness in the low lumbar distribution only without radiation. The patient has good rotational motion of lumbar spine, both laterally as well as extension and flexion without difficulty. EXTREMITIES: Lower extremities show deep tendon reflexes at 1+ in the patellar and tendo-calcaneus tendons. Motor exam is probably a 4 on a scale of 5, but symmetrical with dorsiflexion, extension, quadriceps and hamstring flexion. Peripheral pulses are 1+ posterior tibial. No peripheral edema is noted bilaterally. Options were discussed with the patient. The patient's old chart was reviewed as her current medication regimen updated. Current review of systems updated today as well. We will preauthorize the patient for a third in the series of caudal approach epidural steroid injection with bilateral lumbar radiculopathy, worse on the right than the left in a L5-S1 dermatomal distribution. The patient will continue with stretching and strengthening exercises. She is also walking daily, doing some exercise on her own. We encouraged her to do this as tolerated. The patient will return to the clinic after preauthorization and plan on third caudal approach epidural steroid injection at that time. CIERRA LI MD DR: DOMENIC/barbara JOB#: [id number] / [id number]
== END | disposition home or self-care (01) ==
LOC: PNCL 09:26
PROVIDERS: ATTEND Anesthesiology
DX: M51.16 Intervertebral disc disorders with radiculopathy, lumbar region (principal); M48.061 Spinal stenosis, lumbar region without neurogenic claudication; M96.1 Postlaminectomy syndrome, not elsewhere classified
CPT/HCPCS: G0463

== ENCOUNTER → 2019-03-02 | Outpatient (CLI) | payer OTHER ==
[2018-06-10 10:19] VITALS: BP 132/69
[~2019-03-02] MED LIST changes: +DEXAMETHASONE SOD PHOS 20 MG/5 ML VIAL. ONE; +IOHEXOL 180 MG/ML 10 ML VIAL. ONE; +ONDANSETRON PF 4 MG/2 ML VIAL. ONE; +PROPOFOL 20 ML IV ONE; +SEVOFLURANE 31 TO 60 MINUTES. IH ONE; +fentaNYL PF VIAL 100 MCG/2 ML VIAL ONE; +methylPREDNISolone ACETATE 40 MG/ML VIAL. ONE; +methylPREDNISolone ACETATE 80 MG/ML VIAL. ONE
--- NOTE | 2019-03-02 22:44 | PAIN ---
DATE OF SERVICE: 03/02/2019 DIAGNOSES: Lumbar radiculopathy with lumbar degenerative disk disease, lumbar spinal stenosis and post-lumbar laminectomy syndrome. HISTORY OF PRESENT ILLNESS: The patient is a 63-year-old female who returns for followup status post lumbar epidural steroid injection, caudal approach x 2. The patient did very well with about 70% improvement. The pain is returning now in the low back and bilateral lower extremity as it was previously, a little worse on the right than the left. The patient reports no new motor or sensory deficits, no new bowel or bladder incontinence. It has been awakening her from sleep at night about every 3-4 hours, also some pain in the right hip, posterior gluteus, posterior thigh. The patient reports it is tingling, cramping in the hips with aching pain in the back, sharp in the hip and tight in the back as well, is becoming more constant, unbearable with walking and standing. The patient reports it is anywhere from 8-9 on a scale of 10 at its worst, 8 on average, 7 at its least and is a 7 today. The patient reports no new motor or sensory deficits. No new bowel or bladder incontinence or other complaints. PHYSICAL EXAMINATION: VITAL SIGNS: The patient's blood pressure 146/81, pulse 68, respirations 18, temperature is 97.0 degrees Fahrenheit, height is 5 feet 3 inches, weight is 185 pounds. GENERAL: The patient is awake, alert, oriented, appropriate, very pleasant demeanor. HEENT: Shows normocephalic, atraumatic. Extraocular movements are intact and symmetrical. Oral cavity: Mucous membranes moist and pink. Dentition is intact. NECK: Shows anterior throat supple without palpable lymphadenopathy noted. Swallow reflex is symmetrical. CHEST: Shows normal on inspection. Breath sounds are clear to auscultation bilaterally. HEART: Shows S1, S2 clear. No murmurs auscultated. ABDOMEN: Soft, nontender, nondistended. No palpable organomegaly is noted. No rebound or guarding demonstrated. BACK: Shows spine grossly in the midline. Normal appearing thoracic kyphosis and lumbar lordotic curvature. Lumbar well-healed surgical scar is noted once again. Lumbar paraspinous musculature shows symmetrical on inspection. On palpation shows some moderate tenderness diffusely in the middle and lower distribution of the paraspinous muscles, but only diffusely without radiation. The patient has good rotational motion of lumbar spine, both laterally as well as extension and flexion. EXTREMITIES: Lower extremities show deep tendon reflexes 1+ in the patellar and tendo calcaneus tendons. Motor exam is strong with 4/5 and equal and symmetrical dorsiflexion, extension, quadriceps and hamstring flexion. Peripheral pulses are 1+ posterior tibia. No peripheral edema is noted. Options were discussed with the patient. The patient's old chart was reviewed as was his current medication regimen updated. Current review of systems is updated today as well. We will proceed with a caudal approach epidural steroid injections, is the third in this series with risks again discussed including, but not limited to bleeding, infection, possibility of epidural hematoma, subsequent neurological compromise, dural puncture, headaches, spinal cord and/or nerve damage, side effects of steroid medication and poor results regarding pain control. The patient understands and wished to proceed. The patient will return to the clinic in approximately 2 weeks for followup. She was counseled on return appointment, activity level and side effects to be aware of. DIAGNOSIS: Lumbar radiculopathy with lumbar degenerative disk disease, lumbar spinal stenosis and post-laminectomy syndrome. PROCEDURE: Caudal approach epidural steroid injection using C-arm fluoroscopic guidance under sterile prep and drape using local anesthetic. MEDICATION INJECTED: A total of 120 mg Depo-Medrol plus 10 mL of preservative-free normal saline and 2 mL of contrast. CONDITION AT DISCHARGE: Stable. The patient tolerated the procedure well, had no complications. CIERRA LI MD DR: DOMENIC/barbara JOB#: [id number] / [id number]
== END | disposition home or self-care (01) ==
LOC: PNCL 09:58
PROVIDERS: ATTEND Anesthesiology
DX: M51.16 Intervertebral disc disorders with radiculopathy, lumbar region (principal)
CPT/HCPCS: 62323; J1030; J1040; Q9965; J1100; J2405; J2704; J3010

== ENCOUNTER 2019-03-03 05:53 | Day surgery (SDC) | payer OTHER ==
[~2019-03-03] VITALS: Ht 160 cm; Wt 83.5 kg
[~2019-03-03 05:53] MED LIST changes: -DEXAMETHASONE SOD PHOS 20 MG/5 ML VIAL. ONE; -IOHEXOL 180 MG/ML 10 ML VIAL. ONE; -MORP15TA3 PO; -ONDANSETRON PF 4 MG/2 ML VIAL. ONE; -PROPOFOL 20 ML IV ONE; -SEVOFLURANE 31 TO 60 MINUTES. IH ONE; -fentaNYL PF VIAL 100 MCG/2 ML VIAL ONE; -methylPREDNISolone ACETATE 40 MG/ML VIAL. ONE; -methylPREDNISolone ACETATE 80 MG/ML VIAL. ONE
[2019-03-03] MEDS ORDERED: BUPIVACAINE MPF 0.5% 30 ML VIAL. ONE (06:11)
[2019-03-03] MEDS ORDERED: IV RINGERS,LACTATED 1000ML 1,000 ML IV SCH (07:00)
[2019-03-03] MEDS ORDERED: ONDANSETRON PF 4 MG/2 ML VIAL. IV PRN (07:00)
[2019-03-03] MEDS ORDERED: PROCHLORPERAZINE 10 MG/2 ML VIAL. IV PRN (07:00)
--- NOTE | 2019-03-03 07:14 | DISCH ---
DISCHARGE INSTRUCTIONS Condition on Discharge Condition on Discharge: Stable Activity After Discharge Activity Instructions for Disc: Activity as tolerated Bathing Instructions: Shower-keep dressing dry Lifting Instructions after Dis: No heavy lifting Driving Instructions after Dis: Do not drive Weight Bearing Status after Di: Full weight bearing Diet after Discharge Diet after Discharge: Regular Wound Incision Care Wound/Incision Care: Ice to area for comfort, Keep wound/cast CDI, Keep wound elevated, Do not change dressing Contacting the DR. after DC Call your doctor for: Concerns you may have Follow-Up Follow up with: Mike in 2 wks DEBBY GAVIRIA II, MD Mar 03, 2019 07:14
[2019-03-03] MEDS ORDERED: MORP15TA3 PO (07:23)
[2019-03-03] MEDS ORDERED: PROPOFOL 10 MG/ML (20ML) VIAL. IV ONE (07:30)
[2019-03-03] MEDS ORDERED: SEVOFLURANE 31 TO 60 MINUTES. IH ONE (07:30)
[2019-03-03] MEDS ORDERED: ONDANSETRON PF 4 MG/2 ML VIAL. ONE (07:30)
[2019-03-03] MEDS ORDERED: DEXAMETHASONE SOD PHOS 20 MG/5 ML VIAL. ONE (07:30)
[2019-03-03] MEDS ORDERED: fentaNYL PF VIAL 100 MCG/2 ML VIAL ONE (07:30)
[2019-03-03] MEDS ORDERED: NORMAL SALINE INT ART ONE (07:45)
[2019-03-03] MEDS ORDERED: MORPHINE INT ART ONE (07:45)
[2019-03-03] MEDS ORDERED: MORPHINE PF 5 MG/10 ML VIAL. INT ART ONE (08:14)
--- NOTE | 2019-03-03 08:39 | PDOC4 ---
Operative Note Operative Note Date of procedure: 03/03/2019 Surgeon: Bentley Putnamt.: Sangeetha Grimes, certified tower climber Preoperative diagnosis: Right cubital tunnel syndrome Postoperative diagnosis: Same Procedure performed: Open right cubital tunnel release Anesthesia: Gen. Tourniquet time: 25 minutes Findings: normal appearing ulnar nerve, scar tissue as detailed below Blood loss: 10mL Complications: none Reason for procedure: Patient is a very pleasant female patient of mine who has had numbness and tingling in her fourth and fifth digit on the right side. We had tried conservative therapies including splinting and anti-inflammatories which do not alleviate her symptoms. We had a discussion of the risks, benefits , alternatives to the above procedure to address her cubital tunnel syndrome, which had been confirmed clinically and on EMG. She wished to proceed. Description of procedure: Patient was greeted in the preoperative area by myself for the correct extremity was verified and marked. She was taken back to the operative suite and her antibiotics were started as she was brought back. Once in the operating room, she was transferred gently supine to the operative room table and secured to bed with all pressure points padded. She underwent successful induction of a general anesthetic. We attached the hand board attachment to the operating room table. Nonsterile tourniquet was taped in place to her right upper arm. Right upper extremity was prepped and draped in her usual sterile fashion we conducted our standard preoperative timeout. I palpated the medial epicondyle as well as palpated for the ulnar nerve. I then patricia a line on her skin for a incision over her medial elbow approximately 1 cm posterior to the medial epicondyle, centered over this. The extremity was exsanguinated with an Esmarch and tourniquet was insufflated to 250 mmHg. Skin was incised with a scalpel. Electrocautery was used for hemostasis, I used bipolar cautery throughout this case. I dissected subcutaneous tissue with tenotomies. I incised fashion line with the skin incision. Identified the ulnar nerve proximal to the medial epicondyle, where it was easier to identify, secondary to fibrotic tissue posterior and more distal to the medial epicondyle secondary to her surgical history. I released it proximal to the arcade of Steen. I then continued my careful dissection after placing a vessel loop around the ulnar nerve, I worked along the distal portion of the ulnar nerve into the 2 heads of the FCU tendon and released the nerve completely. I used the tip of the mosquito to palpate along the course of the nerve to help try to accomplish a complete release. I then thoroughly irrigated out the operative field with sterile fluid and let the tourniquet down. I used bipolar cautery again for some venous oozing. Overall her operative site was fairly dry. After this, inverted interrupted 2-0 Vicryl in a multilayered fashion was used to close subcutaneous tissue. Running 4-0 Monocryl in a buried subcuticular fashion was used for skin. Prior to wound closure. All counts correct 2. No competitions. Surgery was well tolerated by the patient. At the conclusion, she was awakened from anesthesia after a sterile bulky soft dressing was applied and transferred gently supine to the recovery room cart. She was taken to the PACU in a stable and extubated condition. Postoperative plan is to allow her use of her right upper extremity for light ADLs, she will leave the dressing intact, she will contact me for any questions or concerns, well see her back in 2 weeks, sooner should a problem arise. BENTLEY GAVIRIA II, MD Mar 03, 2019 08:39
[2019-03-03] MEDS ORDERED: MORPHINE ER 15 MG TABLET.ER PO ONE (08:41)
[2019-03-03] MEDS ORDERED: MORPHINE ER 15 MG TABLET.ER PO SCH (09:00)
[2019-03-03 09:15] VITALS: BP 136/88
== END 2019-03-03 09:41 | disposition home or self-care (01) ==
LOC: SURG 05:53
PROVIDERS: ATTEND Orthopaedic Surgery Sports Medicine
DX: G56.21 Lesion of ulnar nerve, right upper limb (principal); E78.5 Hyperlipidemia, unspecified; Z88.2 Allergy status to sulfonamides; Z88.6 Allergy status to analgesic agent; Z88.5 Allergy status to narcotic agent; Z88.8 Allergy status to other drugs, medicaments and biological substances; Z91.040 Latex allergy status; Z91.048 Other nonmedicinal substance allergy status; M79.7 Fibromyalgia; Z98.890 Other specified postprocedural states; Z90.49 Acquired absence of other specified parts of digestive tract; Z90.710 Acquired absence of both cervix and uterus; Z90.721 Acquired absence of ovaries, unilateral; Z98.51 Tubal ligation status; Z83.3 Family history of diabetes mellitus; Z80.42 Family history of malignant neoplasm of prostate; Z80.8 Family history of malignant neoplasm of other organs or systems; Z80.3 Family history of malignant neoplasm of breast; Z79.899 Other long term (current) drug therapy
CPT/HCPCS: 64718; A7015; J2270; J1100; J2405; J2704; J3010; J3490

== ENCOUNTER → 2019-11-02 | Outpatient (CLI) | payer OTHER ==
[~2019-11-02] MED LIST changes: +MONT10TA49 PO; -MONT10TA9 PO; +MORP-15 PO
--- NOTE | 2019-11-03 00:25 | PAIN ---
DATE OF SERVICE: 11/02/2019 PROGRESS NOTE FOR PAIN CLINIC DIAGNOSES: Lumbar radiculopathy with lumbar degenerative disk disease and lumbar spinal stenosis and post-lumbar laminectomy syndrome. HISTORY OF PRESENT ILLNESS: The patient is a 64-year-old female who returns for followup status post caudal epidural steroid injection, most recently 03/02/2019. The patient did about 50% better, initially was about 85% better, but since May of this year has been about 50% overall and still about 50% improved in the low back and especially the left lower extremity. The patient reports pain radiating into the posterior gluteus, posterior thigh, posterior calf on the left side, some on the right, but mostly on the left and across the low back bilaterally. The patient reports it is a 10 on a scale of 10 at its worst over the past week, 8 on average, 5 at its least and is a 5 today. The patient reports it is aching, dull, tight, cramping, stabbing, becoming more constant with time. Initially, she was doing much better with increased distance walking, doing work activities, household activities, traveling with greater ease and comfort, sleeping well at night, now is awaking about twice a night since about a month consistently. The patient reports no new motor or sensory deficits, no new bowel or bladder incontinence or other complaints. PHYSICAL EXAMINATION: VITAL SIGNS: The patient's blood pressure is 140/84, pulse 79, respirations 18, temperature 97.7 degrees Fahrenheit, height is 5 feet 3 inches and weight is 173 pounds. GENERAL: The patient is awake, alert, oriented, appropriate, very pleasant demeanor. HEENT: Head shows normocephalic, atraumatic. Extraocular movements are intact and symmetrical. Oral cavity shows mucous membranes moist and pink. Dentition is intact. NECK: Shows anterior throat supple without palpable lymphadenopathy noted. Swallow reflex symmetrical. CHEST: Shows normal on inspection. Breath sounds are clear bilaterally. HEART: Shows S1, S2 clear. No murmurs auscultated. ABDOMEN: Soft, nontender, nondistended. No palpable organomegaly is noted. No rebound or guarding demonstrated. BACK: Shows spine grossly in the midline. Normal appearing thoracic kyphosis, some minor flattening of lumbar lordotic curvature. A well-healed surgical scar is noted in the lumbar distribution. Lumbar paraspinous muscle shows symmetrical on inspection, on palpation shows some moderate tenderness diffusely bilaterally in the low lumbar distribution only without radiation. The patient shows good rotational motion of lumbar spine, both laterally as well as extension and flexion without significant difficulty. EXTREMITIES: The patient's lower extremities show deep tendon reflexes at 1+ in the patellar and tendo calcaneus tendons. Motor exam is strong with 5/5 dorsiflexion and extension on the right and 4/5 on the left. Peripheral pulses are 1+ posterior tibia. No peripheral edema is noted bilaterally. Options were discussed with the patient. The patient's old chart was reviewed as her current medication regimen updated. Current review of systems updated today as well. We will preauthorize the patient for a caudal approach epidural steroid injection, with still persistent radiculopathy in the low back, left lower extremity in L5-S1 dermatomal distribution. The patient with post-surgical status and will approve for a caudal epidural approach for epidural steroid injection. The patient will continue doing stretching and strengthening exercises on her own. She just finished a round of physical therapy and is starting another for her left knee. The patient will continue with stretching for her back and strengthening for the back as well. We will plan on caudal epidural steroid injection on her return. The patient was given Medrol Dosepak to take in the meantime. The patient was given instructions on side effects to be aware of with the medication and will follow up as scheduled. CIERRA LI MD DR: DOMENIC/barbara JOB#: [id number] / [id number]
== END | disposition home or self-care (01) ==
LOC: PNCL 13:56
PROVIDERS: ATTEND Anesthesiology
DX: M51.16 Intervertebral disc disorders with radiculopathy, lumbar region (principal); M48.061 Spinal stenosis, lumbar region without neurogenic claudication; Z79.899 Other long term (current) drug therapy
CPT/HCPCS: G0463

== ENCOUNTER → 2019-11-09 | Outpatient (CLI) | payer OTHER ==
[~2019-11-09] MED LIST changes: +GADOTERATE 7.5 MMOL/15ML VIAL. IVP ONE
--- NOTE | 2019-11-09 13:38 | KCIC ---
MR of the left elbow with and without contrast HISTORY: Left elbow mass. TECHNIQUE: Routine multiplanar sequences are obtained before and after intravenous contrast. FINDINGS: Surface markers were placed anterior to the distal humerus, and anterior to the elbow joint, presumably demarcating the area of palpable mass. No evidence of abnormal soft tissue mass, fluid collection, or edema at the area of concern or elsewhere. No evidence of encapsulated lipoma. No abnormal contrast enhancement. No evidence of significant joint effusion. No acute fracture or aggressive bone destruction. There appear to be postsurgical changes with artifact at the medial humeral epicondyle. The common flexor tendon origin and ulnar collateral ligament are distorted by metallic artifact and/or scarring, difficult to evaluate but no evidence of an acute appearing disruption. Common extensor tendon and lateral collateral ligament complex intact. Biceps and brachialis tendons are intact. Triceps tendon is intact. IMPRESSION: 1. Postsurgical changes at the medial humeral epicondyle. Distortion or scarring of the common flexor tendon and ulnar collateral ligament without definite acute disruption. 2. No evidence of soft tissue mass, fluid collection or encapsulated lipoma at the area of concern. Electronically signed by: Magen Burns MD (11/09/2019 1:35 PM) [id number]
== END | disposition home or self-care (01) ==
LOC: KCIC MRI 09:07
PROVIDERS: ATTEND Orthopaedic Surgery Sports Medicine
DX: I73.9 Peripheral vascular disease, unspecified (principal)
CPT/HCPCS: 73223; 82565; A9575

== ENCOUNTER → 2020-01-03 | Outpatient (CLI) | payer OTHER ==
[~2020-01-03] MED LIST changes: -CETI10TA22 PO; +CETI10TA24 PO; +FENO145T3 PO; -FENO145T30 PO; -GADOTERATE 7.5 MMOL/15ML VIAL. IVP ONE; +IOHEXOL 180 MG/ML 10 ML VIAL. ONE; +methylPREDNISolone ACETATE 40 MG/ML VIAL. ONE; +methylPREDNISolone ACETATE 80 MG/ML VIAL. ONE
--- NOTE | 2020-01-03 23:12 | PAIN ---
DATE OF SERVICE: 01/03/2020 PROGRESS NOTE FOR PAIN CLINIC DIAGNOSES: Lumbar radiculopathy with lumbar degenerative disk disease, lumbar spinal stenosis, and post-lumbar laminectomy syndrome. HISTORY OF PRESENT ILLNESS: The patient is a 64-year-old female who returns for followup status post caudal epidural steroid injections, most recently in 02/2019. The patient did very well with this, about 75% improvement initially. The patient reports that the pain has returned now in the low back and bilateral lower extremities, posterior gluteus, and posterior thigh, but mostly in the back itself, right equal to left. The patient reports it is tingling, cramping, and aching type. It is becoming more constant and radiating to the lower extremities with activity, walking, and standing. It is better with sitting or lying down. It generally does not awaken her from sleep at night. The patient reports no new motor or sensory deficits and no new bowel or bladder incontinence. She does have a followup appointment with her neurosurgeon and would like a new MRI scan ordered, as it has been over a year since the previous film was performed and he would like to review those as well. We will make those arrangements. The patient reports that her pain is a 9 on a scale of 10 at its worse for the past week, 7 on average, 5 at its least, and is a 7 today. PHYSICAL EXAMINATION: VITAL SIGNS: The patient's blood pressure is 155/96, pulse 88, respirations 16, temperature 98.2 degrees Fahrenheit, height is 5 feet 3 inches, and weight is 170 pounds. GENERAL: The patient is awake, alert, oriented, and appropriate with very pleasant demeanor. HEENT: Normocephalic and atraumatic. Extraocular movements are intact and symmetrical. Oral cavity: Mucous membranes are moist and pink. Dentition is intact. NECK: Anterior throat supple without palpable lymphadenopathy noted. Swallow reflex symmetrical. CHEST: Normal on inspection. Breath sounds are clear bilaterally. HEART: S1, S2 clear. No murmurs auscultated. ABDOMEN: Obese, soft, nontender, and nondistended. BACK: Spine grossly in the midline. Slight exaggeration of thoracic kyphosis. Some minor flattening of lumbar lordotic curvature with well-healed surgical scar noted. Lumbar paraspinous muscle shows symmetrical on inspection with diffuse tenderness throughout the upper, middle, and lower distribution of paraspinous muscles bilaterally, but only diffusely without significant radiation. The patient has good rotational motion of lumbar spine, both laterally as well as extension and flexion without significant increase in pain. EXTREMITIES: The patient's lower extremities show deep tendon reflexes at 1+ in patellar and tendo calcaneus tendons. Motor exam is approximately 4 on a scale of 5 on the left and 5/5 on the right with dorsiflexion, extension, quadriceps, and hamstring flexion. Peripheral pulses are 1+ posterior tibia. No peripheral edema is noted. Options were discussed with the patient. The patient's old chart was reviewed as her current medication regimen updated. Current review of systems updated today as well. We will proceed with a lumbar epidural steroid injection today with a caudal approach under sterile prep and drape. Risks were discussed including but not limited to bleeding, infection, possibility of epidural hematoma, subsequent neurological compromise, dural puncture, headaches, spinal cord and/or nerve damage, side effects of steroid medication, and poor results regarding pain control. The patient understands and wished to proceed. The patient will return to clinic in approximately 2 weeks for followup. She was counseled as to return appointment, activity level, and side effects to be aware of. DIAGNOSES: Lumbar radiculopathy with lumbar degenerative disk disease, lumbar spinal stenosis, and post-lumbar laminectomy syndrome. PROCEDURE: Lumbar epidural steroid injection, caudal approach using C-arm fluoroscopic guidance under sterile prep and drape using local anesthetic. MEDICATION INJECTED: A total of 120 mg of Depo-Medrol plus 10 mL of preservative-free normal saline and 2 mL of contrast. CONDITION AT DISCHARGE: Stable. The patient tolerated procedure well and had no complications. CIERRA LI MD DR: DOMENIC/barbara JOB#: [id number] / [id number]
== END | disposition home or self-care (01) ==
LOC: PNCL 13:15
PROVIDERS: ATTEND Anesthesiology
DX: M51.16 Intervertebral disc disorders with radiculopathy, lumbar region (principal); M48.061 Spinal stenosis, lumbar region without neurogenic claudication; M96.1 Postlaminectomy syndrome, not elsewhere classified; Z98.890 Other specified postprocedural states; Z91.040 Latex allergy status; Z88.6 Allergy status to analgesic agent; Z88.1 Allergy status to other antibiotic agents; Z88.8 Allergy status to other drugs, medicaments and biological substances; Z91.048 Other nonmedicinal substance allergy status
CPT/HCPCS: 62323; J1030; J1040; Q9965

== ENCOUNTER → 2020-01-05 | Outpatient (CLI) | payer OTHER ==
[~2020-01-05] MED LIST changes: +GADOTERATE 7.5 MMOL/15ML VIAL. IVP ONE; -IOHEXOL 180 MG/ML 10 ML VIAL. ONE; -methylPREDNISolone ACETATE 40 MG/ML VIAL. ONE; -methylPREDNISolone ACETATE 80 MG/ML VIAL. ONE
--- NOTE | 2020-01-05 17:16 | KCIC ---
LUMBAR SPINE WO/W CONTRAST History: Lumbar radiculopathy. Numbness to feet and ankles. Multiple surgeries. Technique: Multiplanar, multi sequential MR imaging was performed of the lumbar spine with and without contrast. Comparison: MRI April 24, 2018. CT myelogram June 10, 2018 Findings: Transitional lumbosacral anatomy with lumbarization of S1. L5-S1 is identified on axial series 6 image 27. Postoperative changes posterior stabilization L3-L4 posterior decompression L4-L5. Intervertebral fusion L4-L5 and L5-S1. Fluid collection within the posterior paraspinal soft tissues within the operative bed, decreased compared to prior. No significant mass effect on the thecal sac. Dependent edema within the posterior subcutaneous tissues. Small fluid collection within the left posterior paraspinal soft tissues at the S1 level, decreased compared to prior. Minimal posterior epidural enhancement at the operative levels, may represent scarring or fibrosis. Conus terminates at the normal location. No evidence of nerve root clumping. L1-L2: Minimal disc bulge. No canal or neuroforaminal narrowing. L2-L3: Broad-based disc bulge. Advanced facet arthropathy. Mild canal narrowing. Subarticular recess narrowing. Mild bilateral neural foraminal narrowing. Findings are similar compared to prior. L3-L4: Intervertebral fusion. Posterior decompression. No canal narrowing. No neuroforaminal narrowing. L4-L5: Intervertebral fusion. Posterior decompression. No canal or neuroforaminal narrowing. L5-S1: Intervertebral fusion. Posterior decompression. No canal narrowing. Advanced facet arthropathy. Mild left neuroforaminal narrowing, unchanged. Impression: 1. Postoperative changes throughout the lower lumbar spine. 2. Superior junctional moderate L2-L3 spondylosis contributing to mild canal narrowing, unchanged. Electronically signed by: Elian Cash DO (01/05/2020 5:13 PM) [id number]
== END ==
LOC: KCIC MRI 13:50
PROVIDERS: ATTEND Anesthesiology
DX: M54.16 Radiculopathy, lumbar region (principal); M48.061 Spinal stenosis, lumbar region without neurogenic claudication
CPT/HCPCS: 72158; A9575

== ENCOUNTER → 2020-01-27 | Outpatient (CLI) | payer OTHER ==
[~2020-01-27] MED LIST changes: -GADOTERATE 7.5 MMOL/15ML VIAL. IVP ONE
--- NOTE | 2020-01-27 21:31 | PAIN ---
DATE OF SERVICE: 01/27/2020 PROGRESS NOTE FOR PAIN CLINIC DIAGNOSES: Lumbar radiculopathy with lumbar degenerative disk disease, lumbar spinal stenosis and post-lumbar laminectomy syndrome. HISTORY OF PRESENT ILLNESS: The patient is a 64-year-old female who returns for followup status post lumbar epidural steroid injection, caudal approach x 1. The patient reports about 75% improvement initially for the first 3 weeks and the pain is radiating to return very slowly beginning to return in the low back, bilateral lower extremities, but now still about 50% improvement even after 3 weeks. The patient reports there is tingling down the legs to the feet, mostly in the posterior gluteus, posterior thigh, posterior calf, aching, sharp, tight and shooting across the back. The patient reports it is a 9 on a scale of 10 at its worst over the past week, 6 on average, 5 at its least and is a 6 today. The patient reports no new motor or sensory deficits. Initially, she was doing much better with increased distance walking, doing work activities, household activities with greater ease and comfort, sleeping well at night, still does not bother her sleep, better with sitting or lying down, worse with walking and standing. The patient reports no new motor or sensory deficits, no new bowel or bladder incontinence or other complaints. She is very pleased with her progress thus far. PHYSICAL EXAMINATION: VITAL SIGNS: The patient's blood pressure is 137/77, pulse 81, respirations are 18, temperature is 98.0 degrees Fahrenheit, height is 5 feet 3 inches, weight is 166 pounds. GENERAL: The patient is awake, alert, oriented, appropriate, very pleasant demeanor. HEENT: Head shows normocephalic, atraumatic. Extraocular movements are intact and symmetrical. Oral cavity: Mucous membranes moist and pink. Dentition is intact. NECK: Shows anterior throat supple without palpable lymphadenopathy noted. Swallow reflex symmetrical. CHEST: Shows normal on inspection. Breath sounds clear bilaterally. HEART: Shows S1, S2 clear. No murmurs auscultated. ABDOMEN: Soft, nontender, nondistended. No palpable organomegaly is noted. No rebound or guarding demonstrated. BACK: Shows spine grossly in the midline. Normal appearing thoracic kyphosis and minor flattening of lumbar lordotic curvature with well-healed surgical scarring noted. Lumbar paraspinous muscle shows symmetrical on inspection, with palpation shows some moderate tenderness diffusely bilaterally, but only diffusely without significant radiation. The patient shows good rotational motion of lumbar spine, both laterally as well as extension and flexion without significant difficulty. EXTREMITIES: Lower extremities show deep tendon reflexes at 1+ in the patellar and tendo-calcaneus tendons. Motor exam is strong with approximately 4 on a scale of 5 with left dorsiflexion, extension and 5/5 on the right. Peripheral pulses are 1+ posterior tibia. No peripheral edema is noted bilaterally. Options were discussed with the patient. The patient's old chart was reviewed as her current medication regimen updated. Current review of systems updated today as well. We will preauthorize patient for a second caudal approach epidural steroid injection today with still significant clinical radiculopathy bilaterally in the L5-S1 dermatomal distribution. Plan on caudal approach epidural steroid injection as the patient did very well with this in the past. In the meantime, we will try Medrol Dosepak. The patient has done well with these in the past as well. The patient was given instruction as well as side effects to be aware of with the medication and we will follow up as scheduled for a caudal epidural steroid injection #2. CIERRA IL MD DR: DOMENIC/barbara JOB#: [id number] / [id number]
== END | disposition home or self-care (01) ==
LOC: PNCL 13:20
PROVIDERS: ATTEND Anesthesiology
DX: M51.16 Intervertebral disc disorders with radiculopathy, lumbar region (principal); M48.061 Spinal stenosis, lumbar region without neurogenic claudication; M96.1 Postlaminectomy syndrome, not elsewhere classified
CPT/HCPCS: G0463

== ENCOUNTER → 2020-02-11 | Outpatient (CLI) | payer OTHER ==
[~2020-02-11] MED LIST changes: +IOHEXOL 180 MG/ML 10 ML VIAL. ONE; +methylPREDNISolone ACETATE 40 MG/ML VIAL. ONE; +methylPREDNISolone ACETATE 80 MG/ML VIAL. ONE
--- NOTE | 2020-02-11 10:14 | PAIN ---
DATE OF SERVICE: 02/11/2020 PROGRESS NOTE FOR PAIN CLINIC DIAGNOSES: Lumbar radiculopathy with lumbar degenerative disk disease, lumbar spinal stenosis and lumbar post-laminectomy syndrome. HISTORY OF PRESENT ILLNESS: The patient is a 64-year-old female who returns for followup status post caudal epidural steroid injection x 1, on 01/03/2020. The patient did very well, reports that she was increasing her activity at home and work, doing walking greater distances, traveling with greater ease and comfort. The patient reports she is sleeping better at night. The pain now has returned, beginning to wake her up from sleep about every 4 hours or so, more noticeable in the low back, bilateral lower extremities, posterior gluteus, posterior thighs, posterior calves. The patient reports tingling to her feet, aching and sharp in the low back, tight and shooting in the leg bilaterally and constant, becoming more severe. The patient reports it is a 9 on a scale of 10 at its worst, 9 on average, and 7 at its least over the past week and is a 7 today. The patient reports no new motor or sensory deficits, no new bowel or bladder incontinence or other complaints. PHYSICAL EXAMINATION: VITAL SIGNS: The patient's blood pressure is 125/78, pulse 91, respirations 16, temperature 98.9 degrees Fahrenheit, weight is 166 pounds. GENERAL: The patient is awake, alert, oriented, appropriate, very pleasant demeanor. HEENT: Exam shows normocephalic, atraumatic. Extraocular movements are intact and symmetrical. Oral cavity shows mucous membranes moist and pink. Dentition is intact. NECK: Shows anterior throat supple. CHEST: Shows normal on inspection. Breath sounds clear to auscultation bilaterally. HEART: Shows S1, S2 clear. No murmurs auscultated. ABDOMEN: Soft, nontender, nondistended. BACK: Shows spine grossly in the midline. Well-healed surgical scar in the lumbar distribution with flattening of lumbar lordotic curvature. Lumbar paraspinous muscle shows symmetrical on inspection, with palpation shows some moderate tenderness diffusely bilaterally, but only diffusely without significant radiation. The patient shows good rotational motion of lumbar spine, both laterally as well as extension and flexion without significant pain reported. EXTREMITIES: Lower extremities show deep tendon reflexes 1+ in the patellar and tendo-calcaneus tendons. Motor exam is approximately 4 on a scale of 5 on the left, 5/5 on the right with dorsiflexion and extension. Peripheral pulses are 1+ posterior tibia. No peripheral edema bilaterally. Options were discussed with the patient. The patient's old chart was reviewed as her current medication regimen updated. Current review of systems updated today as well. We will proceed with a caudal approach epidural steroid injections, is the second in this series with fluoroscopic guidance. Risks were again discussed including, but not limited to bleeding, infection, possibility of epidural hematoma, subsequent neurologic compromise, dural puncture, headaches, spinal cord and/or nerve damage, side effects of steroid medication and poor results regarding pain control. The patient understands and wished to proceed. The patient will return to clinic in approximately 2 weeks for followup. She was counseled on return appointment, activity level and side effects to be aware of. DIAGNOSES: Lumbar radiculopathy with lumbar degenerative disk disease, lumbar spinal stenosis and lumbar post-laminectomy syndrome. PROCEDURE: Lumbar epidural steroid injection, caudal approach using C-arm fluoroscopic guidance under sterile prep and drape using local anesthetic. MEDICATION INJECTED: A total of 120 mg Depo-Medrol plus 10 mL of preservative-free normal saline and 2 mL of contrast. CONDITION AT DISCHARGE: Stable. The patient tolerated procedure well, had no complications. CIERRA LI MD DR: DOMENIC/barbara JOB#: [id number] / [id number]
== END ==
LOC: PNCL 08:39
PROVIDERS: ATTEND Anesthesiology
DX: M51.16 Intervertebral disc disorders with radiculopathy, lumbar region (principal); M48.061 Spinal stenosis, lumbar region without neurogenic claudication; M96.1 Postlaminectomy syndrome, not elsewhere classified
CPT/HCPCS: 62323; J1030; J1040; Q9965

== ENCOUNTER → 2020-05-16 | Outpatient (CLI) | payer OTHER ==
[~2020-05-16] MED LIST changes: -IOHEXOL 180 MG/ML 10 ML VIAL. ONE; -methylPREDNISolone ACETATE 40 MG/ML VIAL. ONE; -methylPREDNISolone ACETATE 80 MG/ML VIAL. ONE
--- NOTE | 2020-05-16 13:58 | PAIN ---
DATE OF SERVICE: 05/16/2020 PROGRESS NOTE FOR PAIN CLINIC DIAGNOSIS: Lumbar radiculopathy with lumbar degenerative disk disease, lumbar spinal stenosis and post-lumbar laminectomy syndrome. HISTORY OF PRESENT ILLNESS: The patient is a 64-year-old female who returns for followup status post caudal epidural steroid injection x 2, most recently 05/13/2020, patient did very well with this, about 2-1/2 weeks of near 100% improvement. The patient reports the pain is returning gradually, but still about 50-60% improvement overall with pain in the low back and bilateral lower extremities, posterior gluteus, posterior thighs and in the back itself. The patient reports it is essentially equal right and left at this time where in the past, it had been slightly worse on the right. The patient reports she is starting physical therapy in one more day and would like to get this started before any further injections. We discussed this as well as she had some therapy to take a few days after her last injection, did seem to help with the therapy as well. The patient reports the pain is a 10 on a scale of 10 at its worst over the past week, 8 on average, 5 at its least and is an 8 today. The patient reports it is aching type, dull, cramping, tingling at times, becoming constant with activity, better with sitting or resting, but it generally does not awaken her from sleep at night, but over the past month or so it has about every 4 hours. The patient reports no new motor or sensory deficits, no bowel or bladder incontinence or other complaints. PHYSICAL EXAMINATION: VITAL SIGNS: The patient's blood pressure 165/94, pulse 88, respirations are 18, temperature 98.3 degrees Fahrenheit, height is 5 feet 3 inches, weighs 175 pounds. GENERAL: The patient is awake, alert, oriented, appropriate, very pleasant demeanor. HEENT: Shows normocephalic, atraumatic. Extraocular movements are intact and symmetrical. Oral cavity: Mucous membranes moist and pink. Dentition is intact. NECK: Shows anterior throat supple without palpable lymphadenopathy noted. Swallow reflex symmetrical. CHEST: Shows normal on inspection. Breath sounds are clear bilaterally. No rales, rhonchi or wheezes auscultated. HEART: Shows S1, S2 clear. No murmurs auscultated. ABDOMEN: Soft, nontender, nondistended. No palpable organomegaly is noted. No rebound or guarding demonstrated. BACK: Shows spine grossly in the midline. Normal appearing thoracic kyphosis and some slight flattening of lumbar lordotic curvature. Lumbar paraspinous muscle shows symmetrical on inspection with a well-healed surgical scar, with palpation shows some moderate tenderness diffusely in the lumbar paraspinous muscles bilaterally going diffusely without significant radiation. The patient has good rotational motion of lumbar spine, both laterally as well as extension and flexion without significant pain reported. EXTREMITIES: Lower extremities show deep tendon reflexes 1+ in the patellar and tendo calcaneus tendons are equal. Motor exam is approximately 4 on a scale of 5 on the left and 5/5 on the right. Peripheral pulses are 1+ posterior tibia. No peripheral edema is noted bilaterally. Options were discussed with the patient. The patient's old chart was reviewed as her current medication regimen updated. Current review of systems updated today as well and we will plan for repeat lumbar epidural steroid injection, caudal approach. The patient would like to wait until her physical therapy is started, which will be in the next date or two. We will have her return in approximately 6 days as scheduled and plan on caudal approach epidural steroid injection at that time. In the meantime, the patient would like to try Medrol Dosepak. She has had good success with these in the past. We discussed this as well as side effects to be aware of with the medication. She will follow up in approximately 6 days as scheduled for a caudal epidural steroid injection at that time. CIERRA LI MD DR: DOMENIC/barbara JOB#: [id number] / [id number]
== END | disposition home or self-care (01) ==
LOC: PNCL 12:41
PROVIDERS: ATTEND Anesthesiology
DX: M51.16 Intervertebral disc disorders with radiculopathy, lumbar region (principal); M48.061 Spinal stenosis, lumbar region without neurogenic claudication; Z88.2 Allergy status to sulfonamides; Z88.8 Allergy status to other drugs, medicaments and biological substances; Z79.899 Other long term (current) drug therapy
CPT/HCPCS: G0463

== ENCOUNTER → 2020-05-22 | Outpatient (CLI) | payer OTHER ==
[~2020-05-22] MED LIST changes: +IOHEXOL 180 MG/ML 10 ML VIAL. ONE; +methylPREDNISolone ACETATE 40 MG/ML VIAL. ONE; +methylPREDNISolone ACETATE 80 MG/ML VIAL. ONE
--- NOTE | 2020-05-22 08:39 | PAIN ---
DATE OF SERVICE: 05/22/2020 PROGRESS NOTE FOR PAIN CLINIC: DIAGNOSES: Lumbar radiculopathy with lumbar degenerative disk disease and lumbar spinal stenosis, lumbar post-laminectomy syndrome. HISTORY OF PRESENT ILLNESS: The patient is a 64-year-old female who returns for followup status post recent evaluation and Medrol Dosepak, which helped by about 40-50%, the patient reports while she was taking the medication, but after it is done, quickly returns in pain in her low back and bilateral lower extremities, left greater than right with some tingling in the left leg as well. The patient reports no new motor or sensory deficits, still significant pain radiating to posterior gluteus, posterior thighs, posterior calves, again worse on the left with some balance issues with the pain as well with difficulty keeping her balance and walking. The patient reports her pain is a 9 on a scale of 10 at its worst over the past week, 9 on average, 6 at its least and is a 9 today. The patient reports it is aching, sharp, dull and tight, tingling, cramping in the leg and the back as well. The patient reports no new motor or sensory deficits or other complaints. The patient reports no new changes. PHYSICAL EXAMINATION: VITAL SIGNS: The patient's blood pressure is 139/78, pulse 85, respirations 20, temperature is 99.0 degrees Fahrenheit, height is 5 feet 3 inches, weight is 178 pounds. GENERAL: The patient is awake, alert, oriented, appropriate, very pleasant demeanor. HEENT: Head shows normocephalic, atraumatic. Extraocular movements are intact and symmetrical. Oral cavity: Mucous membranes moist and pink. Dentition is intact. NECK: Shows anterior throat supple without palpable lymphadenopathy noted. Swallow reflex symmetrical. CHEST: Shows normal on inspection. Breath sounds are clear bilaterally. HEART: Shows S1, S2 clear. ABDOMEN: Obese but soft, nontender, nondistended. BACK: Shows spine grossly in the midline. Slight exaggeration of thoracic kyphosis and flattening of lumbar lordotic curvature with well-healed surgical scarring. Lumbar paraspinous muscle shows symmetrical on inspection, with palpation shows some moderate tenderness diffusely throughout the upper, middle and lower distribution of the paraspinous muscles bilaterally, but without radiation or trigger points. The patient does show good rotational motion of lumbar spine, however, both laterally as well as extension and flexion without significant increase in pain. EXTREMITIES: Lower extremities show deep tendon reflexes at 1+ in the patellar and tendo calcaneus tendons. Motor exam is approximately 4 on a scale of 5 on the left and 5/5 on the right with dorsiflexion, extension, quadriceps and hamstring flexion, but intact. Peripheral pulses are 1+ posterior tibia. No peripheral edema is noted. Options were discussed with the patient. The patient's old chart was reviewed as her current medication regimen updated. Current review of systems updated today as well. We will proceed with a first in this series of caudal epidural steroid injection today with fluoroscopic guidance. Risks were discussed including but not limited to bleeding, infection, possibility of epidural hematoma, subsequent neurological compromise, dural puncture, headaches, spinal cord and/or nerve damage, side effects of steroid medication and poor results regarding pain control. The patient understands and wished to proceed. The patient will return to clinic in approximately 2 weeks for followup. She was counseled on return appointment, activity level and side effects to be aware of. DIAGNOSIS: Lumbar radiculopathy with lumbar spinal stenosis, lumbar degenerative disk disease and lumbar post-laminectomy syndrome. PROCEDURE: Lumbar epidural steroid injection, caudal approach using C-arm fluoroscopic guidance under sterile prep and drape using local anesthetic. MEDICATION INJECTED: A total of 120 mg Depo-Medrol plus 10 mL of preservative-free normal saline and 2 mL of contrast. CONDITION AT DISCHARGE: Stable. The patient tolerated procedure well, had no complications. CIERRA LI MD DR: DOMENIC/barbara JOB#: [id number] / [id number]
== END ==
LOC: PNCL 07:37
PROVIDERS: ATTEND Anesthesiology
DX: M51.16 Intervertebral disc disorders with radiculopathy, lumbar region (principal); M48.061 Spinal stenosis, lumbar region without neurogenic claudication; M96.1 Postlaminectomy syndrome, not elsewhere classified
CPT/HCPCS: 62323; J1030; J1040; Q9965

== ENCOUNTER → 2020-06-15 | Outpatient (CLI) | payer OTHER ==
[~2020-06-15] MED LIST changes: +ASCO100019 PO; -ASCO10002 PO; -CETI10TA24 PO; +CETI10TA74 PO
--- NOTE | 2020-06-15 09:39 | PAIN ---
DATE OF SERVICE: 06/15/2020 PROGRESS NOTE FOR PAIN CLINIC DIAGNOSES: Lumbar radiculopathy with lumbar spinal stenosis, lumbar degenerative disk disease and lumbar post-laminectomy syndrome. HISTORY OF PRESENT ILLNESS: The patient is a 64-year-old female who returns for followup status post caudal epidural steroid injection x 1 on 05/22/2020, patient did very well, reports about 50% improvement overall with pain in the low back and the left lower extremity. The patient reports it is returning now over the past few days, but much better. The patient increased activity, greater distance walking, doing work activities, household activities with greater ease and comfort, traveling with greater ease. Reports it is beginning to awaken her from sleep again; however, initially she was doing much better with sleeping and most of daily activities, but over the past week or so, she has been awakening her from sleep about every 4 hours. The patient reports pain in low back, left lower extremity, posterior gluteus, posterior thigh, posterior calf on the left side only into the ankle. The patient reports some tingling in the foot on the left, some cramping in the back, aching and dull in the back, tight and shooting pain in the left leg, radiating, can be constant, severe with activity. The patient reports the pain is a 9 on a scale of 10 at its worst over the past week, 8 on average, 5 at its least and is a 5 today. The patient reports no new motor or sensory deficits, no new bowel or bladder incontinence or other complaints. She has been doing physical therapy and would like that renewed for her location in [place], [place]. We will make those arrangements as well. PHYSICAL EXAMINATION: VITAL SIGNS: The patient's blood pressure 141/93, pulse 88, respirations 16, temperature 98.4 degrees Fahrenheit, height is 5 feet 3 inches, weight is 176 pounds. GENERAL: The patient is awake, alert, oriented, appropriate, very pleasant demeanor. HEENT: Head shows normocephalic, atraumatic. Extraocular movements are intact and symmetrical. Oral cavity: Mucous membranes moist and pink. Dentition is intact. NECK: Shows anterior throat supple without palpable lymphadenopathy noted. Swallow reflex symmetrical. CHEST: Shows normal on inspection. Breath sounds are clear to auscultation bilaterally. HEART: Shows S1, S2 clear. No murmurs auscultated. ABDOMEN: Soft, nontender, nondistended. No palpable organomegaly is noted. BACK: Shows spine grossly in the midline, slight exaggerated thoracic kyphosis, some minor flattening of lumbar lordotic curvature with well-healed surgical scarring noted. Lumbar paraspinous muscle shows symmetrical on inspection, on palpation shows some diffuse tenderness throughout the upper, middle and lower distribution of paraspinous muscles, but without significant radiation, atrophy or hypertrophy. The patient has good rotational motion of lumbar spine, both laterally as well as extension and flexion without significant difficulty. EXTREMITIES: The patient's lower extremities show deep tendon reflexes at 1+ patellar and tendo calcaneus tendons. Motor exam is approximately 4 on a scale of 5 on the left with dorsiflexion, extension and 5/5 on the right. Peripheral pulses are 1+ posterior tibia. No peripheral edema is noted bilaterally. Options were discussed with the patient. The patient's old chart was reviewed as her current medication regimen updated. Current review of systems updated today as well. We will proceed with a second in the series of caudal epidural steroid injection today with fluoroscopic guidance. Risks were again discussed including, but not limited to bleeding, infection, possibility of epidural hematoma, subsequent neurological compromise, dural puncture, headaches, spinal cord and/or nerve damage, side effects of steroid medication and poor results regarding pain control. The patient understands and wished to proceed. The patient will return to clinic in approximately 2 weeks for followup. She was counseled on return appointment, activity level and side effects to be aware of. DIAGNOSIS: Lumbar radiculopathy with lumbar spinal stenosis, lumbar degenerative disk disease and lumbar post-laminectomy syndrome. PROCEDURE: Lumbar epidural steroid injection, caudal approach that is at the caudal level under sterile prep and drape using local anesthetic. MEDICATION INJECTED: A total of 120 mg Depo-Medrol plus 10 mL of preservative-free normal saline and 2 mL of contrast. CONDITION AT DISCHARGE: Stable. The patient tolerated procedure well, had no complications. CIERRA LI MD DR: DOMENIC/barbara JOB#: [id number] / [id number]
== END | disposition home or self-care (01) ==
LOC: PNCL 07:31
PROVIDERS: ATTEND Anesthesiology
DX: M51.16 Intervertebral disc disorders with radiculopathy, lumbar region (principal); M96.1 Postlaminectomy syndrome, not elsewhere classified; M48.061 Spinal stenosis, lumbar region without neurogenic claudication; I10 Essential (primary) hypertension; Z88.2 Allergy status to sulfonamides; Z88.5 Allergy status to narcotic agent; Z88.8 Allergy status to other drugs, medicaments and biological substances; Z79.899 Other long term (current) drug therapy
CPT/HCPCS: 62323; J1030; J1040; Q9965

== ENCOUNTER → 2020-06-15 | Outpatient (CLI) | payer OTHER ==
[~2020-06-15] MED LIST changes: -ASCO100019 PO; +ASCO10002 PO; +CETI10TA24 PO; -CETI10TA74 PO; -IOHEXOL 180 MG/ML 10 ML VIAL. ONE; -methylPREDNISolone ACETATE 40 MG/ML VIAL. ONE; -methylPREDNISolone ACETATE 80 MG/ML VIAL. ONE
--- NOTE | 2020-06-15 12:04 | RAD ---
CERVICAL SPINE WO CONTRAST DATE: 06/15/2020 8:54 AM INDICATION: NECK PAIN, CERVICAL STENOSIS TECHNIQUE: Multiplanar multisequence magnetic resonance imaging of the cervical spine was performed without administration of intravenous contrast using the standard cervical spine protocol. COMPARISON: None. FINDINGS: Postsurgical changes of ACDF at C5-C7. Osseous fusion across the C5-6 disc space. Straightening of the cervical lordosis. No acute fracture. Mild to moderate multilevel degenerative disc desiccation and disc height loss. No marrow replacing process to suggest malignancy. The spinal cord is normal in signal intensity. On the limited views of the cranial cavity and brain, the cerebellum and eliot have normal morphology and signal characteristics. No Chiari malformation. No soft tissue abnormality. Normal signal voids are present in the vertebral arteries. C2-3: Mild right and moderate left facet arthropathy. No significant spinal canal stenosis or neural foraminal narrowing. C3-4: Disc osteophyte complex. Uncovertebral hypertrophy. Moderate right and mild left facet arthropathy. Ligamentum flavum thickening. No neural foraminal narrowing. Mild spinal canal stenosis. C4-5: Disc osteophyte complex. Uncovertebral hypertrophy. Moderate right facet arthropathy. Ligamentum flavum thickening. Moderate spinal canal stenosis. Mild right neural foraminal narrowing. C5-6: No significant spinal canal stenosis or neural foraminal narrowing. C6-7: Disc osteophyte complex. Uncovertebral hypertrophy. Mild bilateral neural foraminal narrowing and mild spinal canal stenosis. C7-T1: Disc osteophyte complex. Uncovertebral hypertrophy. Mild right and moderate left facet arthropathy. Mild bilateral neural foraminal narrowing. No spinal canal stenosis. IMPRESSION: Mild to moderate cervical spondylosis, detailed level by level above. Electronically signed by: Sergo Shipley MD (06/15/2020 12:01 PM) [id number]
== END | disposition home or self-care (01) ==
LOC: MRI 08:47
PROVIDERS: ATTEND Neurological Surgery
DX: M48.02 Spinal stenosis, cervical region (principal); M47.812 Spondylosis without myelopathy or radiculopathy, cervical region; M43.22 Fusion of spine, cervical region; M50.30 Other cervical disc degeneration, unspecified cervical region; M25.78 Osteophyte, vertebrae
CPT/HCPCS: 72141

== ENCOUNTER → 2020-07-13 | Outpatient (CLI) | payer OTHER ==
[~2020-07-13] MED LIST changes: +ASCO100019 PO; -ASCO10002 PO
--- NOTE | 2020-07-13 09:22 | PDOC ---
Progress Note - Pain Clinic Date of Service: DOS: DATE: 07/13/20 TIME: 09:17 Diagnosis: Dx: Lumbar radiculopathy lumbar spinal stenosis lumbar degenerative disease and lumbar postlaminectomy syndrome Cervical radiculopathy with cervical degenerative disease cervical postlaminectomy syndrome History or Present Illness: HPI: 64-year-old female returns follow-up status post caudal epidural steroid in [place] [id number] most recently June 15, 2020. Patient reports did very well with about 80% improvement her main complaint today however is at base the neck and left greater than right upper extremity pain reports pain is beginning to shoot and spread into her left arm and upper extremity much more over the past 3 weeks or so without any specific injury or accident that she is aware of patient reports the pain is a 9 on a scale of 10 is worse of the past week 7 on average 6 at its least is a 7 today patient was aching dull shooting tingling and burning as well as cramping at times and becoming constant worse with increasing activity of the upper extremities lifting items with the left upper extremity patient ports its been waking her from sleep about every 4-6 hours over the past few weeks as well. Patient reports no loss of motor function occasional shooting into the right upper extremity but significant radiation of the left upper extremity with activity. Patient which is been dropping items with the left hand feels like it is unstable and weak compared to the right. Patient reports no overt loss of motor function but significant fatigability with the left upper extremity compared to the right. Physical Exam: VS: Blood pressure is 129/76 pulse 74 respiration 16 temperature is 98.7 F weight is 176 pounds PE: PHYSICAL EXAMINATION: GENERAL: The patient is awake, alert, oriented, appropriate, very pleasant demeanor HEENT: Shows normocephalic, atraumatic. Extraocular movements are intact and symmetrical. Oral cavity: Mucous membranes moist and pink. Dentition is intact. NECK: Shows anterior throat supple without palpable lymphadenopathy noted. Swallow reflex symmetrical. CHEST: Shows normal on inspection. Breath sounds are clear bilaterally no rales rhonchi or wheezes auscultated. HEART: Shows S1, S2 clear. No murmurs auscultated. ABDOMEN: Soft, nontender, nondistended. No palpable organomegaly is noted. No rebound or guarding demonstrated. BACK: Shows spine grossly in the midline. Normal-appearing cervical lordotic curvature, cervical spine shows full rotation motion both laterally as well as extension flexion point some minor pain with extension. Cervical paraspinous muscles show symmetrical on inspection palpation some moderate tenderness diffusely in the left greater than right inferior aspect the cervical paraspinous musculature as well as the superior medial trapezius without specific trigger points of radiation pain.. There is slightly increased thoracic kyphosis, some minor flattening of the lumbar lordotic curvature. Lumbar paraspinous muscles show symmetrical on inspection, on palpation shows some moderate tenderness diffusely throughout the upper, middle and lower distribution of the paraspinous muscles bilaterally without specific trigger points, without radiation of pain. The patient has good rotational motion of the lumbar spine, both laterally as well as extension and flexion without significant difficulty. No tenderness over the spinous processes, sacrum or sacroiliac regions. EXTREMITIES: upper extremities show deep tendon reflexes 2+ in the biceps and triceps tendons. Motor exam is 5 on a scale of 5 with right orthodontist strength biceps and triceps flexion and 4/5 on the left. Peripheral pulses are 2+ radial. [] peripheral edema is noted bilaterally. Upper extremities are warm and dry to touch, equal in color and appearance. Shoulder shrug is strong and intact without loss of strength on resistance but with moderate pain in the left side base the neck and shoulder this is true with abduction of the shoulder 90 degrees on the left only. SKIN: Shows warm and dry, good turgor. No edema. No sores, rashes or bruising throughout. Procedure: Procedure: Options were discussed with the patient. Patient will chart reviews her current medication regimen updated current review of systems updated today as well. We will preauthorize patient for cervical epidural steroid injection as she has significant radicular quality pain in the left upper extremity. Patient also with recent MRI scan cervical spine dated June 15, 2020 showing C3-4 C4-5 disc osteophyte complex with moderate right and moderate spinal canal stenosis with mild right neuroforaminal narrowing and moderate right and mild left facet arthropathy at C3-4. Patient will try Medrol Dosepak in the meantime patient was given instructions will side effects beware with the medication and will follow-up after preauthorization we will plan on a see 6 7 level translaminar cervical epidural steroid injection at that time for the clinical C6-7 radicular pain in the left upper extremity. Medication Injected: Med Injected: None Condition at Discharge: Condition at Discharge: Condition at discharge is stable. CIERRA LI MD Jul 13, 2020 09:22
== END | disposition home or self-care (01) ==
LOC: PNCL 08:30
PROVIDERS: ATTEND Anesthesiology
DX: M50.123 Cervical disc disorder at C6-C7 level with radiculopathy (principal); M48.02 Spinal stenosis, cervical region; M51.16 Intervertebral disc disorders with radiculopathy, lumbar region; M96.1 Postlaminectomy syndrome, not elsewhere classified; M50.10 Cervical disc disorder with radiculopathy, unspecified cervical region; Z88.2 Allergy status to sulfonamides; Z88.5 Allergy status to narcotic agent; Z88.8 Allergy status to other drugs, medicaments and biological substances; Z79.899 Other long term (current) drug therapy
CPT/HCPCS: G0463

== ENCOUNTER → 2020-10-17 | Outpatient (CLI) | payer OTHER ==
[~2020-10-17] MED LIST changes: -CETI10TA24 PO; +CETI10TA74 PO
--- NOTE | 2020-10-17 11:17 | KCIC ---
MRI lumbar spine without contrast HISTORY: Lumbar radiculopathy. New left leg pain and numbness. History of prior lumbar spinal surgery. COMPARISON: MRI lumbar spine January 05, 2020. FINDINGS: Transitional lumbosacral anatomy, for consistency of the numbering of the vertebra the prior exam L5-S1 is on axial image 28. Straightening of the lumbar spine curvature with loss of the typical lordosis. Lumbar vertebral body height and alignment intact. No bone marrow edema. There is mild transverse oriented bony sclerosis of the lower L2 lumbar vertebra although this is stable to prior exam likely chronic discogenic changes from degenerative disc disease, lack of edema makes a fracture unlikely. Conus terminates at the lower L1 lumbar vertebral level. Cauda equina is unremarkable. Postoperative change of L3-L5 laminectomies, pedicle screw and nghia fusion L3-L4, and discectomy and interbody fusion with cages at L4-5 and L5-S1 again demonstrated. At the L3 and L4 laminectomies again demonstrated is a dorsal epidural loculated fluid collection and surrounding scar tissue which is stable, the collection does not abut or deform or narrow the dural sac. Smaller separate 1 cm cyst or fluid collection posterior of the left L5-S1 facet joint within the dorsal paraspinal tissues also stable. Disc disease is described below. L1-L2: Posterior disc height loss and mild disc bulge ina the ventral dural sac. Ligament flavum buckling and facet hypertrophy and mild spurring. No significant spinal canal or neural foraminal stenosis evident. Dural sac diameter 12 mm. L2-L3: Disc desiccation, marked disc height loss, large circumferential disc osteophyte, ligament flavum buckling and facet hypertrophy and spurring. Mild narrowing lateral recesses and mild neural foraminal stenoses. Mild spinal canal stenosis dural sac diameter 9 mm. Stable. L3-L4: Spinal canal and neural foramina decompressed. L4-L5: Spinal canal and neural foraminal decompressed. L5-S1: Minimal narrowing of the bilateral neural foramina due to facet spurring. Spinal canal decompressed. Stable. IMPRESSION: Postoperative changes of the lumbar spine with adequate spinal canal decompression is stable. Lumbar disc disease and arthritis with bone spurring again demonstrated. There is stable mild spinal canal stenosis at L2-L3. Stable mild neural foraminal stenosis at L2-L3 and L5-S1. Stable exam. See above. Electronically signed by: Nate Reeves MD (10/17/2020 11:14 AM) [facility] [place]
== END ==
LOC: KCIC MRI 09:07
PROVIDERS: ATTEND Neurological Surgery
DX: M47.26 Other spondylosis with radiculopathy, lumbar region (principal); M48.07 Spinal stenosis, lumbosacral region; Z98.1 Arthrodesis status
CPT/HCPCS: 72148

== ENCOUNTER → 2020-10-17 | Outpatient (CLI) | payer OTHER ==
[~2020-10-17] MED LIST changes: +IOHEXOL 180 MG/ML 10 ML VIAL. ONE; +methylPREDNISolone ACETATE 40 MG/ML VIAL. ONE; +methylPREDNISolone ACETATE 80 MG/ML VIAL. ONE
--- NOTE | 2020-10-17 08:43 | PDOC ---
Progress Note - Pain Clinic Date of Service: DOS: DATE: 10/17/20 TIME: 08:37 Diagnosis: Dx: Cervical radiculopathy with cervical degenerative disc disease and cervical postlaminectomy syndrome Lumbar radiculopathy with lumbar degenerative disc disease lumbar spinal stenosis and lumbar postlaminectomy syndrome History or Present Illness: HPI: 64-year-old female returns for follow-up status post caudal approach epidural steroid injections x2 most recently seen July 13, 2020. Patient reports she did well about 80% provement for 2 and half weeks after the last injection which was June 15. Patient reports her main complaint now is neck and left upper extremity pain. Patient is status post cervical anterior discectomy with fusion in the past with pain increasing in the base the neck and left upper extremity. We discussed this back in the summer patient returns today reporting still significant pain base the neck left upper extremity rating the posterior shoulder posterior triceps biceps anteriorly into the anterior and posterior forearm as well some pain in the left elbow and hand on the left side. Patient will have some low back pain but is more manageable now and the neck and left upper extremity pain is her chief complaint. Patient scribes pain is aching sharp dull tight weakness in the left arm compared to the right with some tingling cramping in the arm and shoulder itself radiating pain in the left arm becoming more constant with activity off-and-on intensity. Patient ports it wakes her from sleep about every 4 hours or so no loss of motor function but significant fatigability with left arm weakness also some decreased balance issues with the pain as well. Patient rates her pain as a 9 on scale 10 is worse over the past week 5 on average 5 its least is a 5 today. Reports no new motor or sensory deficits no bowel or bladder incontinence. Physical Exam: VS: Blood pressure is 161/95 pulse 85 respirations 16 temperature is 99.1 F height is 5 feet 3 inches weight is 167 pounds PE: PHYSICAL EXAMINATION: GENERAL: The patient is awake, alert, oriented, appropriate, very pleasant in demeanor HEENT: Shows normocephalic, atraumatic. Extraocular movements are intact and symmetrical. NECK: Shows anterior throat supple without palpable lymphadenopathy noted. Swallow reflex symmetrical. CHEST: Shows normal on inspection. Breath sounds are clear bilaterally. HEART: Shows S1, S2 clear. No murmurs auscultated. ABDOMEN: Soft, nontender, nondistended. No palpable organomegaly is noted. No rebound or guarding demonstrated. BACK: Shows spine grossly in the midline. Normal-appearing cervical lordotic c urvature. Cervical spine shows symmetrical on inspection with rotation show some moderate tenderness with extension but not with forward flexion but full rotation right and left lateral past 45 degrees closer to 90 degrees without significant difficulty. Posterior cervical musculature shows moderate tenderness with palpation moment mainly in the inferior aspect of the paraspinous musculature and into the superior medial trapezius more on the left than the right but without specific trigger points without atrophy or hypertrophy. There is slightly increased thoracic kyphosis, some minor flattening of the lumbar lordotic curvature. Well-healed surgical scarring is noted. lumbar paraspinous muscles show symmetrical on inspection, on palpation shows some moderate tenderness diffusely throughout the upper, middle and lower distribution of the paraspinous muscles, without specific trigger points, without radiation of pain. The patient has good rotational motion of the lumbar spine, both laterally as well as extension and flexion without significant difficulty. No tenderness over the spinous processes, sacrum or sacroiliac regions. EXTREMITIES: Lower extremities show deep tendon reflexes 1+ in the patellar and tendo calcaneus tendons. Motor exam is 4 on a scale of 5 with right dorsiflexion, extension, quadriceps and hamstring flexion and 5/5 on the left. Peripheral pulses are 1+ posterior tibial. No peripheral edema is noted bilaterally. Lower extremities are warm and dry to touch, equal in color and appearance. Upper extremities show deep tendon reflexes 2+ in the bicep triceps tendons and are symmetrical motor exam is grossly 4 to scale 5 with left enginehouse brakeman strength bicep tricep flexion 5-5 on the right peripheral pulses are 2+ radial. no peripheral edema is noted bilaterally SKIN: Shows warm and dry, good turgor. No edema. No sores, rashes or bruising throughout. Procedure: Procedure: Options were discussed with the patient. Patient chart was reviewed as her current medication regimen updated current review of systems updated today as well. We will proceed with a cervical epidural steroid injection with fluoroscopic guidance today. Risks were discussed including but not limited to: Bleeding, infection, possibility of epidural hematoma and subsequent neurological compromise, dural puncture, headaches, spinal cord and/or nerve damage, side effects of steroid medication, and poor results regarding pain control. Patient understands wished to proceed. Patient will return to clinic in approximately 4weeks for follow-up was counseled as to return appointment activity level and side effects to be aware of. Medication Injected: Med Injected: Procedure cervical epidural steroid injection at the C6-7 level, using local anesthetic under sterile prep and drape using C-arm fluoroscopic guidance under local anesthesia medications injected ; 120 mg Depo-Medrol + 5 mL normal saline and 2 mL contrast; condition at discharge is stable patient tolerated procedure well. and had no complications Condition at Discharge: Condition at Discharge: Condition at discharge is stable, patient tolerated procedure well and had no complications. CIERRA LI MD Oct 17, 2020 08:43
== END | disposition home or self-care (01) ==
LOC: PNCL 07:41
PROVIDERS: ATTEND Anesthesiology
DX: M50.10 Cervical disc disorder with radiculopathy, unspecified cervical region (principal); M51.16 Intervertebral disc disorders with radiculopathy, lumbar region; M48.061 Spinal stenosis, lumbar region without neurogenic claudication; M96.1 Postlaminectomy syndrome, not elsewhere classified; E78.00 Pure hypercholesterolemia, unspecified; I10 Essential (primary) hypertension; M19.90 Unspecified osteoarthritis, unspecified site; G47.30 Sleep apnea, unspecified; K21.9 Gastro-esophageal reflux disease without esophagitis; Z90.710 Acquired absence of both cervix and uterus; Z98.890 Other specified postprocedural states; Z79.899 Other long term (current) drug therapy; Z98.51 Tubal ligation status; Z88.2 Allergy status to sulfonamides; Z88.1 Allergy status to other antibiotic agents; Z88.5 Allergy status to narcotic agent; Z88.8 Allergy status to other drugs, medicaments and biological substances; Z91.040 Latex allergy status; Z82.49 Family history of ischemic heart disease and other diseases of the circulatory system
CPT/HCPCS: 62321; J1030; J1040; Q9965

== ENCOUNTER → 2020-11-08 | Outpatient (CLI) | payer OTHER ==
[~2020-11-08] MED LIST changes: -IOHEXOL 180 MG/ML 10 ML VIAL. ONE; -methylPREDNISolone ACETATE 40 MG/ML VIAL. ONE; -methylPREDNISolone ACETATE 80 MG/ML VIAL. ONE
--- NOTE | 2020-11-08 12:18 | KCIC ---
MRI of the brain without contrast 11/08/2020 Clinical History: Chronic migraine headaches. Technique: Unenhanced T1-weighted sagittal and axial, T2-weighted axial and coronal and FLAIR and dif fusion-weighted axial images of the brain were obtained. Findings: The ventricles and sulci are within normal limits in size and configuration. No area of sig nificant abnormal signal intensity is seen involving brain parenchyma. No extra-axial fluid collectio n is seen. There is no MRI evidence of acute ischemia/infarction. Mild mucosal thickening in seen scattered throughout the paranasal sinuses. There are minimal bilater al mastoid effusions. Normal flow voids are seen within the major vascular structures surrounding the brain parenchyma. Impression: 1. Negative MRI of the brain. 2. Mild paranasal sinus and mastoid disease. Electronically signed by: Alireza Marquez MD (11/08/2020 12:15 PM) [id number]
== END ==
LOC: KCIC MRI 09:46
PROVIDERS: ATTEND Physician Assistant Medical
DX: J32.9 Chronic sinusitis, unspecified (principal); J34.89 Other specified disorders of nose and nasal sinuses; H74.8X3 Other specified disorders of middle ear and mastoid, bilateral; G43.909 Migraine, unspecified, not intractable, without status migrainosus
CPT/HCPCS: 70551

== ENCOUNTER → 2020-11-16 | Outpatient (CLI) | payer OTHER ==
--- NOTE | 2020-11-16 11:35 | KCIC ---
MR CERVICAL SPINE WO History:Reason: CERVICALGIA / Spl. Instructions: / History: Left sided neck pain into left shoulder and down arm. LUE numbness. Technique: Multiplanar, multi sequential noncontrast MR imaging was performed of the cervical spine. Comparison: June 15, 2020 cervical spine. Brain MRI November 08, 2020 Findings: Anterior stabilization and interbody fusion C5-C7. C5-C6 intervertebral fusion as well as corporative . No acute fracture. Normal alignment. Apparent signal abnormality within the cervical cord on STIR imaging is likely artifactual as not cor roborated on additional sequences. C2-C3: No canal or neuroforaminal narrowing. Facet arthropathy, left greater than right. C3-C4: Central disc protrusion. Partial effacement of ventral CSF space. Mild canal narrowing. Cord flattening. Uncovertebral and facet arthropathy. Mild foraminal narrowing. C4-C5: Posterior disc osteophyte complex. Moderate canal narrowing. Cord flattening. Uncovertebral a nd facet arthropathy. No neuroforaminal narrowing. C5-C6: There vertebral fusion. No canal narrowing. No neuroforaminal narrowing. Facet arthropathy. C6-C7: Intervertebral fusion. Posterior osteophyte. Normal cord flattening. Uncovertebral and facet arthropathy. Moderate right and mild left neuroforaminal narrowing. C7-T1: No canal narrowing. Uncovertebral and facet arthropathy. Mild left neuroforaminal narrowing. No right neuroforaminal narrowing. Additional upper thoracic facet arthropathy with neural foraminal narrowing mild T3-T4. Loss of flow void within the right vertebral artery. Difficult to compared to prior cervical spine gi dominique differences in technique. The distal right vertebral artery flow void is identified on brain MRI and is small in caliber. Impression: 1. Postoperative changes C5-C7 anterior stabilization and interbody fusion. 2. Multilevel cervical spondylosis most prominent superior junctional level C4-C5 with moderate mark l narrowing and cord flattening, unchanged. 3. Multilevel neuroforaminal narrowing, unchanged. 4. Loss of flow void within the right vertebral artery, may relate to small caliber, stenosis or occ lusion. CT or MR angiogram can further assess. Electronically signed by: Elian Cash DO (11/16/2020 11:32 AM) [id number]
--- NOTE | 2020-11-16 14:01 | KCIC ---
STUDY: MRI of the left shoulder without contrast INDICATION: Left shoulder pain. COMPARISON: None recently. TECHNIQUE: Multiplanar MR imaging of the left shoulder performed without the use of intravenous or in tra-articular contrast. FINDINGS: Despite multiple repeat imaging attempts the study is degraded by motion. AC joint: Widened AC joint without surrounding soft tissue edema to suggest this is acute. Small volu me subacromial subdeltoid bursal fluid. Rotator cuff: Generalized articular sided thinning of the supraspinatus to varying degrees from its a nterior margin to the junction with the infraspinatus. The greatest degree of thinning is seen betwee n 1.2 and 2 cm medial to the footprint spanning the mid supraspinatus to the supraspinatus/infraspina tus junction over an AP dimension of approximately 1.1 cm. There is approximately 75 percent loss of cross-sectional tendon thickness in this region. Infraspinatus tendinosis without a high-grade or ful l-thickness tear. The teres minor is intact. The subscapularis is intact. Maintained rotator cuff mus cular bulk. Labrum: Degenerative type SLAP tear extending to the posterior/superior aspect. Long head biceps tendon: Intact and normally located. Cartilage: Not well evaluated due to motion but there are areas of chondral thinning involving the hu meral head more so than the glenoid. Bones: Glenohumeral joint arthrosis that is relatively mild. No acute fracture or focally aggressive marrow signal abnormality. Miscellaneous: No axillary adenopathy. Impression: 1. Generalized thinning of the supraspinatus with superimposed high-grade articular sided thinning/t earing from its mid aspect to the infraspinatus junction mainly between 1.2 and 2 cm medial to the fo otprint. There is up to approximately 75 percent loss of cross-sectional tendon thickness. Background supraspinatus and infraspinatus tendinosis. Rotator cuff muscular bulk is maintained. 2. Degenerative-type SLAP tear extending to the posterior/superior labrum. Intact and normally locat ed long head biceps. 3. The study is motion degraded but there is evidence for chondral thinning involving the humeral he ad more so than the glenoid. Electronically signed by: DIDIER YEN MD (11/16/2020 1:59 PM) [id number]
== END ==
LOC: KCIC MRI 07:51
PROVIDERS: ATTEND Physician Assistant Medical
DX: S43.432A Superior glenoid labrum lesion of left shoulder, initial encounter (principal); M48.03 Spinal stenosis, cervicothoracic region; M47.812 Spondylosis without myelopathy or radiculopathy, cervical region; M19.012 Primary osteoarthritis, left shoulder; X58.XXXA Exposure to other specified factors, initial encounter; Y93.89 Activity, other specified; Y92.89 Other specified places as the place of occurrence of the external cause; Y99.8 Other external cause status
CPT/HCPCS: 72141; 73221

== ENCOUNTER → 2021-04-03 | Outpatient (CLI) | payer OTHER ==
[~2021-04-03] MED LIST changes: +ACYC-12 PO; -ACYC400T PO; +IOHEXOL 300 MG/ML 100ML VIAL. IV ONE
--- NOTE | 2021-04-03 11:12 | KCIC ---
EXAM: CTA NECK WITH AND WITHOUT CONTRAST. HISTORY: Abnormal right vertebral artery on prior examinations. TECHNIQUE: Computed tomographic angiography of the neck was performed before and after the intravenou s administration of iodinated contrast. Three-dimensional reconstructions were also performed. COMPARISON: 11/16/2020. FINDINGS: Angiographic findings: The aortic arch has a typical branching pattern. There is no arch vessel steno sis. Both common carotid arteries are patent without stenosis. There is lobulation of both cervical buyer internship al carotid arteries distally without significant stenosis. There is no dissection. The intracranial i nternal carotid arteries are patent. The external carotid systems are patent. The left vertebral artery is dominant and patent. The right vertebral artery occludes 2 cm beyond its origin. It reconstitutes in its mid cervical portion, but appears to reocclude at C1. There is recon stitution thereafter, possibly from retrograde flow. It supplies the right posterior inferior cerebel lar artery. Nonangiographic findings: Bone windows reveal C5-C7 anterior cervical discectomy and fusion. The lung apices demonstrate bilateral mild diffuse groundglass opacities. The parotid glands and submandibular glands are unremarkable. The thyroid gland demonstrates no suspi cious lesions. There are no laryngeal or pharyngeal masses. There are no pathologically enlarged lymph nodes. IMPRESSION: 1. 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 Reconstitution of its distal porti on may be from retrograde flow. The right vertebral supplies the right posterior inferior cerebellar artery. The left vertebral artery is dominant and patent. 2. Lobulation of both cervical internal carotid arteries is consistent with fibromuscular dysplasia. There is no associated stenosis. 3. Groundglass opacities in both lung apices may reflect only atelectasis. Correlate for mild pulmona ry edema or atypical pneumonia. PQRS Compliance Statement - Stenosis calculations for CT, MR and conventional angiography are based u prateek measurement of the distal ICA diameter in accordance with the NASCET methodology. Stenosis calcu lations for carotid ultrasound studies are derived from validated velocity criteria which are known t o correlate with the NASCET methodology. *One or more of the following individualized dose reduction techniques were utilized for this examina tion: 1. Automated exposure control. 2. Adjustment of the mA and/or kV according to patient size. 3. Use of iterative reconstruction technique. Electronically signed by: Yoseph Ambrose MD (04/03/2021 11:10 AM) [id number]
== END ==
LOC: KCIC CT 08:49
PROVIDERS: ATTEND Physician Assistant Medical
DX: I65.01 Occlusion and stenosis of right vertebral artery (principal); R42 Dizziness and giddiness; R91.1 Solitary pulmonary nodule
CPT/HCPCS: 70498; Q9967

== ENCOUNTER → 2021-09-26 | Outpatient (CLI) | payer OTHER ==
[~2021-09-26] MED LIST changes: +ALBU2.5V8 INH; +BUTE15CR TP; +CRESTOR40 MG PO; +DICL20GE TP; +DULO60CA7 PO; +EPIN0.1521 IJ; +FLUT9.9S NS; -IOHEXOL 300 MG/ML 100ML VIAL. IV ONE; +KETO120S4 TP; -LACT1CAP29 PO; +LACT1CAP37 PO; +LEVO50TA5 PO; +SUMA50TA3 PO; +VENTOLIN HFA18 GM INH; +requip
--- NOTE | 2021-09-26 11:38 | PDOC ---
Progress Note - Pain Clinic Date of Service: DOS: DATE: 09/26/21 TIME: 11:32 Diagnosis: Dx: Cervical radiculopathy with cervical degenerative disease and cervical postlaminectomy syndrome Lumbar radiculopathy lumbar spinal stenosis lumbar degenerative disc disease and lumbar postlaminectomy syndrome History or Present Illness: HPI: 65-year-old female returns for follow-up last seen October 2020. Patient did very well after both lumbar and cervical epidural steroid junctions over the years and reports pain is returning down the base of the neck and shoulders but now is significantly more noticeable on the right side in the upper extremity radiating to the right arm posterior deltoid posterior triceps anterior bicep forearm and hand with numbness and tingling in the right hand as well as some in the left shoulder. Patient reports is also some low back pain and pain in the lower extremities but her main complaint is neck and shoulder pain. Patient is recently seen her neurosurgeon who is recommending conservative therapy at this time with new MRI scan showing postoperative changes C5 7 with anterior stabilization and interbody fusion moderate right and mild left neuroforaminal narrowing C6-7 as well. Patient reports her pain is a 9 on scale 10 is worse over the past week 8 on average 8 its least is an 8 today. Patient Is dull tight burning cramping can be constant and severe with activity raising hands over her head driving patient looking back to the right side when backing up her car as well as difficulty with sleeping wakes her from sleep at least every 4 to 5 hours each night. Patient reports a loss of motor function but significant fatigability of the upper extremity specially with weightbearing weight lifting and repetitive motions. Patient has been doing stretching strengthening exercises that she learned from previous physical therapy sessions in the past which helped to moderate extent but not decrease the pain completely she is also taking [id number] Tylenol which helps moderately as well. Physical Exam: VS: Blood pressure is 158/99 pulse 81 respirations 18 temperature 98.2 F height is 5 feet 3 inches weight is 186 pounds PE: PHYSICAL EXAMINATION: GENERAL: The patient is awake, alert, oriented, appropriate, very pleasant in demeanor HEENT: Shows normocephalic, atraumatic. Extraocular movements are intact and symmetrical. Oral cavity: Mucous membranes moist and pink. NECK: Shows anterior throat supple without palpable lymphadenopathy noted. Swallow reflex symmetrical. CHEST: Shows normal on inspection. Breath sounds are clear bilaterally, distant but no rales or rhonchi auscultated. HEART: Shows S1, S2 clear. No murmurs auscultated. ABDOMEN: Soft, nontender, nondistended, obese. No palpable organomegaly is noted. BACK: Shows spine grossly in the midline. Normal-appearing cervical lordotic curvature. Cervical paraspinous muscles show symmetrical with inspection of the patient is a moderate tenderness diffusely in the right greater than left middle and lower distribution the paraspinous muscle as well as into the superior medial trapezius but also in the left trapezius superiorly as well very firm musculature which is tender diffusely with palpation without specific radiation. Patient shows good rotation motion cervical spine which is somewhat guarded with extension as well as forward flexion right left lateral rotation performed past 45 degrees bilateral. There is slightly increased thoracic kyphosis, some minor flattening of the lumbar lordotic curvature. Lumbar paraspinous muscles show symmetrical on inspection, on palpation shows some moderate tenderness diffusely throughout the upper, middle and lower distribution of the paraspinous muscles, but without specific trigger points, without radiation of pain. The patient has good rotational motion of the lumbar spine, both laterally as well as extension and flexion without significant difficulty. No tenderness over the spinous processes, sacrum or sacroiliac regions. EXTREMITIES: Lower extremities show deep tendon reflexes 1+ in the patellar and tendo calcaneus tendons. Motor exam is 4 on a scale of 5 with right dorsifl exion, extension, quadriceps and hamstring flexion and 4/5 on the left. Peripheral pulses are 1+ posterior tibial. No peripheral edema is noted bilaterally. Upper extremities show deep tendon reflexes 2+ in the bicep and tricep tendons, motor exam is 4 on a scale of 5 right and 5 out of 5 on the left wrapper operator strength bicep and tricep flexion. Upper and lower extremities are warm a nd dry to touch, equal in color and appearance. SKIN: Shows warm and dry, good turgor. No edema. No sores, rashes or bruising throughout. Procedure: Procedure: Options were discussed with the patient. Patient's old chart was reviewed as her current medication regimen updated current review of systems updated today as well. We will preauthorize patient for cervical epidural steroid injection she has clinical C6-7 dermatomal distribution radiculopathy in the right upper e xtremity. Patient will be given Medrol Dosepak which was called in for her at her local pharmacy with instructions and side effects aware of discussed as well. Once preauthorized, patient will return to clinic for a translaminar approach C6-7 level cervical epidural steroid injection with fluoroscopic guidance. Medication Injected: Med Injected: None Condition at Discharge: Condition at Discharge: Condition at discharge is stable. CIERRA LI MD Sep 26, 2021 11:38
== END | disposition home or self-care (01) ==
LOC: PNCL 09:57
PROVIDERS: ATTEND Anesthesiology
DX: M50.10 Cervical disc disorder with radiculopathy, unspecified cervical region (principal); M96.1 Postlaminectomy syndrome, not elsewhere classified; M51.16 Intervertebral disc disorders with radiculopathy, lumbar region; M48.061 Spinal stenosis, lumbar region without neurogenic claudication; I10 Essential (primary) hypertension; E78.00 Pure hypercholesterolemia, unspecified; G47.30 Sleep apnea, unspecified; K21.9 Gastro-esophageal reflux disease without esophagitis; E03.9 Hypothyroidism, unspecified; Z98.890 Other specified postprocedural states; Z79.899 Other long term (current) drug therapy; Z96.652 Presence of left artificial knee joint; Z90.49 Acquired absence of other specified parts of digestive tract; Z98.51 Tubal ligation status
CPT/HCPCS: 99212; G0463

== ENCOUNTER → 2021-10-05 | Outpatient (CLI) | payer OTHER ==
--- NOTE | 2021-10-05 15:03 | KCIC ---
MR CERVICAL SPINE WO History:Reason: NECK PAIN / Spl. Instructions: Previous anterior surgery. / History: Neck pain and cr epitus. shooting pain into BUE, especially shoulders. Technique: Multiplanar, multi sequential noncontrast MR imaging was performed of the cervical spine. Comparison: November 16, 2020 Findings: Straightening of the cervical spine. Herrera-white 1 anterolisthesis C4 on C5. Mild retrolisthesis C6 on C7. Slight grade 1 anterolisthesis C7 on T1. Alignment is unchanged compared to prior. Anterior stabilization and interbody fusion C5-C7, unchanged. Intervertebral fusion well-corticated C 5-C6. No pathologic signal abnormality within the cervical spinal cord. 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 C2-C3: Slight disc protrusion. No canal or neuroforaminal narrowing. C3-C4: Posterior disc osteophyte complex. Mild canal narrowing. Cord flattening. Facet arthropathy. Mild bilateral neuroforaminal narrowing. C4-C5: Posterior disc osteophyte complex. Moderate canal narrowing. Cord flattening. Uncovertebral a nd facet arthropathy. Mild right neuroforaminal narrowing. C5-C6: Intervertebral fusion. No canal narrowing. No neuroforaminal narrowing. C6-C7: Posterior osteophyte. Mild canal narrowing. Cord flattening. Uncovertebral and facet arthrop athy. Moderate bilateral neuroforaminal narrowing. C7-T1: No canal narrowing. Facet arthropathy. Mild neuroforaminal narrowing. T1-T2: No canal narrowing. Facet arthropathy. Mild left neuroforaminal narrowing. When compared the prior examination the degenerative findings are similar. Impression: 1. Moderate cervical spondylosis most prominent C4-C5, similar compared to prior. 2. C4-C5 moderate canal narrowing. 3. Mild C3-C4 and C6-C7 canal narrowing. 4. Neuroforaminal narrowing most prominent C6-C7. 5. Postoperative changes C5-C7. Electronically signed by: Elian Cash DO (10/05/2021 3:00 PM) [facility]
--- NOTE | 2021-10-05 15:41 | KCIC ---
STUDY: MRI of the left elbow without contrast INDICATION: Left elbow mass. History of previous surgery. COMPARISON: 11/09/2019 TECHNIQUE: Multiplanar MR imaging of the left elbow performed without the use of intravenous or intra -articular contrast. FINDINGS: Bones/cartilage: Susceptibility artifact from surgical hardware at the medial humeral epicondyle. No fracture, focally aggressive marrow signal abnormality or subchondral edema/cystic change. No full-th ickness chondral defect is readily apparent considering artifact on the fat-saturated T2 axial and co crista sequences. Musculotendinous: No tear or significant tendinosis at the common extensor origin. The proximity of t he common flexor origin to the susceptibility artifact hinders close assessment but on the sagittal S TIR sequence there is no evidence for a high-grade or full-thickness tear. Intact biceps brachii and brachialis. The triceps is intact. Pronator teres fatty infiltration becoming apparent approximately 6 cm distal to its origin. No muscular edema to indicate subacute denervation. Ligaments: The radial collateral, lateral ulnar collateral and annular ligaments are intact. Complete evaluation of the ulnar collateral ligament due to artifact on the coronal T2 sequence. Nerves: The ulnar nerve does not extend through the cubital tunnel but instead courses anterior to th e medial epicondyle, image 18 series 3, presumably from surgical transposition. This was also the mariaelena e on the comparison. Normal fat plane maintained around the ulnar nerve above and just past the media l epicondyle. No significant change in signal or size from the prior. Miscellaneous: A superficial marker overlies the cubital fossa. No mass, fluid collection or other ab normality seen to involve the subcutaneous tissues or musculature in this region. No epitrochlear lym phadenopathy. No elbow joint effusion or olecranon bursitis. IMPRESSION: 1. No mass, fluid collection or other abnormality is seen at the anterior elbow in the region of pal pable concern. 2. Operative changes at the medial elbow at least in part from anterior transposition of the ulnar n erve. No high-grade or full-thickness tendon tear. No ligamentous abnormality is appreciated noting s usceptibility artifact hindering evaluation of the ulnar collateral ligament. Electronically signed by: DIDIER YEN MD (10/05/2021 3:39 PM) [id number]
== END ==
LOC: KCIC MRI 12:22
PROVIDERS: ATTEND Neurological Surgery
DX: M47.22 Other spondylosis with radiculopathy, cervical region (principal); M43.12 Spondylolisthesis, cervical region; M48.02 Spinal stenosis, cervical region; M25.78 Osteophyte, vertebrae; R20.2 Paresthesia of skin; Z98.890 Other specified postprocedural states
CPT/HCPCS: 72141; 73221

== ENCOUNTER → 2021-10-10 | Outpatient (CLI) | payer OTHER ==
[~2021-10-10] MED LIST changes: +IOHEXOL 180 MG/ML 10 ML VIAL. ONE; +methylPREDNISolone ACETATE 40 MG/ML VIAL. ONE; +methylPREDNISolone ACETATE 80 MG/ML VIAL. ONE
--- NOTE | 2021-10-10 11:29 | PDOC ---
Progress Note - Pain Clinic Date of Service: DOS: DATE: 10/10/21 TIME: 11:25 Diagnosis: Dx: Cervical radiculopathy with cervical degenerative disease and cervical postlaminectomy syndrome Lumbar radiculopathy with lumbar degenerative disease and lumbar postlaminectomy syndrome with lumbar spinal stenosis History or Present Illness: HPI: 65-year-old female returns for follow-up status post previous cervical epidural steroid injections most recently October 2020 also caudal epidural injections most recently May 2020. She did very well with each of these pain returning now in the base the neck and upper extremity more on the right than the left pa jorge reports is a 9 on scale 10 is worst over the past week 9 on average 8 its least is a 9 today patient reports pain is in the right side of the shoulder and neck but both shoulders worse on the right side and some pain in the left elbow as well radiating from the left shoulder to the posterior deltoid posterior tricep into the forearm and to the hand patient which is tingling and burning in the hand and arm constantly gets severe aching dull pain in the neck itself patient reports worse with repetitive motions reaching overhead with her right arm difficulty with sleeping wakes her several times a night does not have any loss of motor function but significant fatigability with the right arm with repetitive motions reaching and weightbearing. Patient reports no bowel or bladder incontinence currently. Physical Exam: VS: Blood pressure is 130/80 pulse 84 respirations 16 temperature 98.2 F height is 5 foot 3 inches weight is 182 pounds. PE: PHYSICAL EXAMINATION: GENERAL: The patient is awake, alert, oriented, appropriate, very pleasant in demeanor HEENT: Shows normocephalic, atraumatic. Extraocular movements are intact and symmetrical. Oral cavity: Mucous membranes moist and pink. Dentition is intac t. NECK: Shows anterior throat supple without palpable lymphadenopathy noted. Swallow reflex symmetrical. CHEST: Shows normal on inspection. Breath sounds are clear bilaterally, no rales rhonchi wheezes auscultated. HEART: Shows S1, S2 clear. No murmurs auscultated. ABDOMEN: Soft, nontender, nondistended, obese. No palpable organomegaly is noted. BACK: Shows spine grossly in the midline. Normal-appearing cervical lordotic curvature. Cervical paraspinous muscles show symmetrical inspection, on palpat ion some moderate tenderness diffusely in the inferior aspect the cervical paraspinous muscle slightly more on the right than left and present bilaterally also in the superior medial trapezius without trigger points without atrophy hypertrophy. Patient shows good rotation motion cervical spine both laterally as well as full extension full forward flexion. There is slightly increased thoracic kyphosis, some minor flattening of the lumbar lordotic curvature. Lumbar paraspinous muscles show symmetrical on inspection, on palpation shows some moderate tenderness diffusely throughout the upper, middle and lower distribution of the paraspinous muscles, but without specific trigger points, without radiation of pain. The patient has good rotational motion of the lumbar spine, both laterally as well as extension and flexion without significant difficulty. EXTREMITIES: Lower extremities show deep tendon reflexes 1 in the patellar and tendo calcaneus tendons. Motor exam is 4 on a scale of 5 with right dorsiflexion, extension, quadriceps and hamstring flexion and 4/5 on the left. Peripheral pulses are 1 posterior tibial. No peripheral edema is noted bilaterally. Lower extremities are warm and dry to touch, equal in color and appearance. Upper extremity show deep tendon reflexes 2+ in the bicep tricep tendons, motor exam is 5 out of 5 at left and 4-5 on the right with bicep and tricep flexion white sidewall tire buffer strength as well as shoulder shrug but without loss of strength on resistance bilaterally. SKIN: Shows warm and dry, good turgor. No edema. No sores, rashes or bruising throughout. Procedure: Procedure: Options discussed with patient. Patient old chart was reviewed as was her current medication regimen updated current review of systems updated today as well. We will proceed with a cervical epidural steroid injection today with fluoroscopic guidance. Risks were discussed including but not limited to: Bleeding, infection, possibility of epidural hematoma and subsequent neurological compromise, dural puncture, headaches, spinal cord and/or nerve damage, side effects of steroid medication, and poor results regarding pain control. Patient understands and wished to proceed. Patient will return to clinic in approximate 2 weeks for follow-up, was counseled return appointment, activity level, and side effect to be aware of. Medication Injected: Med Injected: Procedure cervical epidural steroid injection at the C6-7 level, using local anesthetic under sterile prep and drape using C-arm fluoroscopic guidance under local anesthesia medications injected ;120 mg Depo-Medrol +5 mL normal saline and 2 mL contrast; condition at discharge is stable patient tolerated procedure well. and had no complications Condition at Discharge: Condition at Discharge: Condition at discharge is stable, patient tolerated procedure well and had no complications. CIERRA LI MD Oct 10, 2021 11:29
--- NOTE | 2021-10-10 11:30 | PDOC4 ---
Procedure Note: ICD 10 Code: ICD 10 Code: M54.12 M50.30 722.81 Procedure Note: Patient is consented for cervical epidural steroid traction with fluoroscopic guidance. Risks were discussed including but not limited to: Bleeding, infection, possibility of epidural hematoma and subsequent neurological compromise, dural puncture, headaches, spinal cord and/or nerve damage, side effects of steroid medication, and poor results regarding pain control. Patient understands and wished to proceed. Procedure cervical epidural steroid injection at the C6-7 level, using local ane sthetic under sterile prep and drape using C-arm fluoroscopic guidance under local anesthesia medications injected ;120 mg Depo-Medrol +5 mL normal saline and 2 mL contrast; condition at discharge is stable patient tolerated procedure well. and had no complications CIERRA LI MD Oct 10, 2021 11:30
== END | disposition home or self-care (01) ==
LOC: PNCL 10:02
PROVIDERS: ATTEND Anesthesiology
DX: M50.10 Cervical disc disorder with radiculopathy, unspecified cervical region (principal); M96.1 Postlaminectomy syndrome, not elsewhere classified; M51.16 Intervertebral disc disorders with radiculopathy, lumbar region; I10 Essential (primary) hypertension; K21.9 Gastro-esophageal reflux disease without esophagitis; E78.00 Pure hypercholesterolemia, unspecified; E11.9 Type 2 diabetes mellitus without complications; E03.9 Hypothyroidism, unspecified; F41.9 Anxiety disorder, unspecified; F32.9 Major depressive disorder, single episode, unspecified; M19.90 Unspecified osteoarthritis, unspecified site; Z90.710 Acquired absence of both cervix and uterus; Z98.51 Tubal ligation status; Z98.890 Other specified postprocedural states; Z79.82 Long term (current) use of aspirin; Z79.899 Other long term (current) drug therapy; Z88.1 Allergy status to other antibiotic agents; Z88.2 Allergy status to sulfonamides; Z88.5 Allergy status to narcotic agent; Z88.8 Allergy status to other drugs, medicaments and biological substances
CPT/HCPCS: 62321; J1030; J1040; Q9965

== ENCOUNTER → 2021-11-07 | Outpatient (CLI) | payer OTHER ==
--- NOTE | 2021-11-07 11:44 | PDOC ---
Progress Note - Pain Clinic Date of Service: DOS: DATE: 11/07/21 TIME: 11:41 Diagnosis: Dx: Cervical radiculopathy with cervical degenerative disease and cervical postlaminectomy syndrome Lumbar radiculopathy with lumbar degenerative disc disease, spinal stenosis, and lumbar postlaminectomy syndrome History or Present Illness: HPI: 66-year-old female returns status post cervical epidural steroid injection October 10. Patient did very well about 60% improvement in the neck and upper extremities patient reports her chief complaint today however is low back and bilateral lower extremity pain with pain rating the posterior gluteus posterior thighs bilaterally right and left and into the knees and some into the leg on the right side more than left posterior calf patient reports that her neck is doing much better as her shoulders and upper extremities is to increase activities greater ease and comfort sleeping better but her back is becoming much more noticeable with pain radiating across the low back into the bilateral lower extremities as described patient rates as a 7 on scale 10 is worse over the past week for an average 3 distillation is a 4 today patient reports that sharp pain is much better in the upper extremities low back however is much worse with walking standing changing positions wakes her from sleep about once every 6 hours patient describes as tingling cramping constant in the low back ac kevin dull also tight feeling and shooting in the legs patient reports no bowel or bladder incontinence no loss of motor function but significant fatigability of the lower extremities with ambulation or standing. Physical Exam: VS: Blood pressure is 146/78 pulse 79 respirations are 18 temperature 98.2 F weight is 184 pounds PE: PHYSICAL EXAMINATION: GENERAL: The patient is awake, alert, oriented, appropriate, very pleasant in demeanor HEENT: Shows normocephalic, atraumatic. Extraocular movements are intact and symmetrical. Oral cavity: Mucous membranes moist and pink. Dentition is intact. NECK: Shows anterior throat supple without palpable lymphadenopathy noted. Swallow reflex symmetrical. CHEST: Shows normal on inspection. Breath sounds are clear bilaterally, coarse but no rales or rhonchi. HEART: Shows S1, S2 clear. No murmurs auscultated. ABDOMEN: Soft, nontender, nondistended, obese. No palpable organomegaly is noted. BACK: Shows spine grossly in the midline. Normal-appearing cervical lordotic curvature. There is increased thoracic kyphosis, some flattening of the lumbar lordotic curvature with well-healed midline surgical scarring noted. Lumbar paraspinous muscles show symmetrical on inspection, on palpation shows some moderate tenderness diffusely throughout the upper, middle and lower distribution of the paraspinous muscles, but without specific trigger points, without radiation of pain. The patient has good rotational motion of the lumbar spine, both laterally as well as extension and flexion without significant difficulty. No tenderness over the spinous processes, sacrum or sacroiliac regions. EXTREMITIES: Lower extremities show deep tendon reflexes 1+ in the patellar and tendo calcaneus tendons. Motor exam is 4 on a scale of 5 with right dorsiflexion, extension, quadriceps and hamstring flexion and 4/5 on the left. Peripheral pulses are 1+ posterior tibial. No peripheral edema is noted bilaterally. Lower extremities are warm and dry to touch, equal in color and appearance. SKIN: Shows warm and dry, good turgor. No edema. No sores, rashes or bruising throughout. Procedure: Procedure: Options discussed with patient. Patient chart reviews her current medication regimen updated current review of systems updated today as well. We'll proceed with a caudal approach epidural steroid injection today with fluoroscopic guidance. Risks were discussed including but not limited to: Bleeding, infection, possibility of epidural hematoma and subsequent neurological compromise, dural puncture, headaches, spinal cord and/or nerve damage, side effects of steroid medication, and poor results regarding pain control. Patient understands and wished to proceed. Patient return to clinic in approximately 2 weeks for follow-up, was counseled as to return appointment, activity level, and side effect to be aware of. Medication Injected: Med Injected: Procedure is lumbar epidural steroid injection under local anesthetic using sterile prep and drape at the caudal level using C-arm fluoroscopic guidance in both AP and lateral views medications injected is 120 mg Depo-Medrol +10mL preservative-free normal saline and 2 mL contrast- condition at discharge is stable patient tolerated procedure well had no complications. Condition at Discharge: Condition at Discharge: Condition at discharge is stable, paced tolerated the procedure well and had no complications. CIERRA LI MD Nov 07, 2021 11:44
--- NOTE | 2021-11-07 11:45 | PDOC4 ---
Procedure Note: ICD 10 Code: ICD 10 Code: M54.17 M51.87 M4 8.07 M 96.1 Procedure Note: Patient was consented for lumbar epidural steroid injection caudal approach with fluoroscopic guidance. Risks were discussed including but not limited to: Bleeding, infection, possibility of epidural hematoma and subsequent neurol ogical compromise, dural puncture, headaches, spinal cord and/or nerve damage, side effects of steroid medication, and poor results regarding pain control. Patient understands and wished to proceed. Procedure is lumbar epidural steroid injection under local anesthetic using sterile prep and drape at the caudal level using C-arm fluoroscopic guidance in both AP and lateral views medications injected is 120 mg Depo-Medrol +10mL preservative-free normal saline and 2 mL contrast- condition at discharge is stable patient tolerated procedure well had no complications. CIERRA LI MD Nov 07, 2021 11:45
== END | disposition home or self-care (01) ==
LOC: PNCL 10:56
PROVIDERS: ATTEND Anesthesiology
DX: M51.16 Intervertebral disc disorders with radiculopathy, lumbar region (principal); M48.061 Spinal stenosis, lumbar region without neurogenic claudication; M50.10 Cervical disc disorder with radiculopathy, unspecified cervical region; M96.1 Postlaminectomy syndrome, not elsewhere classified; I10 Essential (primary) hypertension; E78.00 Pure hypercholesterolemia, unspecified; K21.9 Gastro-esophageal reflux disease without esophagitis; E11.9 Type 2 diabetes mellitus without complications; M19.90 Unspecified osteoarthritis, unspecified site; E03.9 Hypothyroidism, unspecified; F41.9 Anxiety disorder, unspecified; F32.9 Major depressive disorder, single episode, unspecified; Z90.49 Acquired absence of other specified parts of digestive tract; Z90.710 Acquired absence of both cervix and uterus; Z98.890 Other specified postprocedural states; Z98.51 Tubal ligation status; Z79.899 Other long term (current) drug therapy; Z88.2 Allergy status to sulfonamides; Z88.8 Allergy status to other drugs, medicaments and biological substances
CPT/HCPCS: 62323; J1030; J1040; Q9965